=== PATIENT | male | born 1970 | race Caucasian/White ===

== ENCOUNTER 2024-04-15 00:37 | Inpatient (IN) | payer OTHER, SELFPAY ==
[2024-04-14] VITALS (8 sets, daily range): BP systolic 138–166; BP diastolic 110–133; BMI 27.8
[2024-04-14 19:25] LABS: % Basophils 0.6 % (0-2); % Eosinophils 0.1 % (0-6); % Immature Granulocytes 0.4 % (0-0.5); % Lymphocytes 25.8 % (20.5-51.1); % Monocytes 10.3 % (1.7-9.3); % Neutrophils 62.8 % (42.2-75.2); Absolute Basophils 0.1 10^3/uL (0-0.2); Absolute Immature Granulocytes 0.1 10^3/uL (0-0.05); Absolute Lymphocytes 4.3 10^3/uL (1.2-3.4); Absolute Monocytes 1.7 10^3/uL (0.1-0.6); Absolute Neutrophils 10.5 10^3/uL (1.4-6.5); Hematocrit 44.4 % (39.0-52.0); Hemoglobin 15.3 g/dL (13.0-18.0); Mean Corp Hgb Conc. 34.5 g/dL (33.0-37.0); Mean Corpuscular Hgb 27.6 pg (27.0-31.0); Mean Platelet Volume 9.6 fL (7.4-10.4); Nucleated Red Blood Cells % 0 % (-); Platelet Count 316 10^3/uL (130-400); Red Blood Cell Count 5.55 10^6/uL (4.70-6.10); Red Cell Dist. Width 14.2 % (11.5-14.5); White Blood Cell Count 16.7 10^3/uL (4.8-10.8)
--- NOTE | 2024-04-14 19:32 | ED.GENMED ---
History of Present Illness
<Yvonne Krishna DO, Resident - Last Filed: 04/14/24 23:32>
General
Chief Complaint: Anxiety
Source: patient and ambulance crew
Time Seen by Provider: 04/14/24 19:10
Nursing documentation reviewed up to this point in time: agreed with
History of Present Illness
History of Present Illness:
Mr. Nuno Vieyra is a 53 yo male w PMH HTN, HLD, multiple sclerosis, back pain, and neuropathy brought into the ED by EMS with SOB and anxiety. The SOB is associated with anxiety and he becomes diaphoretic. The SOB has occurred 1-2x/day,
usually at night before sleep, for the past two months. 2 months ago, Pt was started on lexapro 20mg/day and switched from gabapentin to lyrica. Has been switched back to gabapentin. The dyspnea improved after using his 's inhaler two nights
ago. He denies chest pain, palpitations, LANDA, cough, fever.
Hx asthma in brother, pt exposed to secondhand smoke from father and home health aid.
Pt was seen yesterday by EMS for the same sx. Pt has been bed-bound for 3-4 years. He endorses increased stressors with his ex and children
Past History
<Yvonne Krishna DO, Resident - Last Filed: 04/14/24 23:32>
Past History
ED Past Medical History: Other (ms, psoriasis) and Other (multiple sclerosis)
ED Past Surgical History: Cholecystectomy and Other (L3-L5 hemilaminectomy)
Patient has exhibited threatening behavior?: No
Social History
Tobacco: 2nd hand smoke exposure
Drug: Marijuana
Personal:
Living: with family
Employment: Employed
Family History
Family History: Asthma (brother)
Review of Systems
<Yvonne Krishna DO, Resident - Last Filed: 04/14/24 23:32>
Review of Systems
Allergies reviewed?: Yes
Other source history: ambulance crew
Constitutional: Denies fever or fatigue
EENT: Denies sore throat or runny nose
Respiratory: Reports trouble breathing; Denies cough
Cardiac: Reports no symptoms
ABD/GI: Reports constipated and other (incontinent); Denies abdominal pain, nausea or vomiting
: Reports no symptoms
Musculoskeletal: Reports back pain; Denies edema
Neurological: Denies dizzy or headache
Phy Exam
<Yvonne Krishna DO, Resident - Last Filed: 04/14/24 23:32>
General Physical Exam
General Presentation: mild distress
General age: appears stated age
General Skin: warm
General Mental: alert
General Hydration: appears well hydrated
General Chronic Disability: non ambulatory
Cardiovascular Exam
Cardiovascular Exam: no edema, no gallop, no murmur, tachycardia and other (sinus rhythm)
Heart Sounds: normal
Pulmonary Exam
Pulmonary Exam: lungs clear, no rales, chest non tender, no rhonchi, no wheezing, no cough and other (observed pulse ox dipping to the low 80s while in the room)
Respiratory Effort: tachypnea
Oxygen Status: oxygen 4 liters via NC
Cough: no cough
Respirations: moderate effort
Gastrointestinal Exam
Gastrointestinal Exam: normal bowel sounds, non tender, soft, no organomegaly, no pulsatile mass and non distended
Neurological Exam
Neurological Exam: alert and oriented x3
Scores
<Yvonne Krishna DO, Resident - Last Filed: 04/14/24 23:32>
QCSI Score
Respiratory Rate: 23-28
Pulse Oximetry: < or = to 88
Oxygen Requirement: 3-4 L
Score: 10
Result: High Risk
PE Wells Score
Symptoms of DVT: No
No alternative diagnosis better explains the illness: No
Tachycardia with pulse > 100: Yes
Immobilization (>=3 days) or surgery within previous 4 weeks: Yes
Prior history of DVT or pulmonary embolism: No
Presence of hemoptysis: No
Presence of malignancy: No
Pulmonary Embolism Risk Score: 3.0
Probability of PE: Pt is moderate risk
PERC Rule Criteria
Age <50 years: No
HR <100 bpm: No
Room air oxygen sat >94%: No
History of DVT or PE: No
Recent trauma or surgery: No
Hemoptysis: No
Exogenous estrogen: No
Clinical signs suggestive of DVT: No
: No
Considered low risk for PE: No
PERC Score: 4
PE can be excluded by PERC: No
<Sophia Saunders DO - Last Filed: 04/14/24 23:28>
QCSI Score
Score: 10
Result: High Risk
PE Wells Score
Pulmonary Embolism Risk Score: 3.0
Probability of PE: Pt is moderate risk
PERC Rule Criteria
PERC Score: 4
PE can be excluded by PERC: No
Course
<Yvonne Krishna DO, Resident - Last Filed: 04/14/24 23:32>
Orders/Labs/Results
Orders:
Orders
04/14/24 19:10
EKG [Electrocardiogram (*1)] Urgent
Reason for Study: Shortness of Breath
04/14/24 19:11
EKG- Treatment ONCE
04/14/24 19:15
CBC/With Diff [Complete Blood Count/With Diff] Urgent
CMP [Comprehensive Metabolic Panel] Urgent
04/14/24 20:06
COVID-19 Antigen Urgent
Source: Nasal Swab
D-Dimer Urgent
Troponin I Urgent
04/14/24 20:41
CT Chest Pe Study Urgent
Comment:
Reason For Exam: SOB, positive dimer, tachy
04/14/24 23:26
PTT Urgent
Comment: Obtain baseline before beginning heparin infusion if not already collected
Heparin 7,900 units IV NOW STA
Pharmacy Request to Place See Dose Instructions PO NOW STA
Discontinue all Active Warfarin orders?: Yes
Nursing to Place Non Medication Order As Directed
Physician Order: PTT 6 hours after initial start of Heparin infusion
04/14/24 23:30
Heparin 26229 Units/250 ml 25,000 units in 250 ml IV PER PROTOCOL
Weight to be used for heparin protocol in kilograms (kg):: 98.3
Protocol:: DVT/PE
PTT Goal Range to be used:: PTT 73 to 111 seconds
Order type:: Initial
INITIAL Infusion Dose (UNITS/KG/hr) & then follow protocol:: 18 units/kg/hr
Infusion Dose in UNITS/hr & then follow protocol (UNITS/hr):: 1,800
INFUSION RATE in mL/hr & then follow protocol (mL/hr):: 18
For DVT/PE algorithm, re-bolus for low PTT?: Yes
PTT less than or equal to 64 seconds:: Re-bolus 80 units/kg (max 10,000units). Increase by 400 units/hr
(+ 4mL/hr)
PTT 64.1 to 72.9 seconds:: Re-bolus 40 units/kg (max 5,000 units). Increase by 200 units/hr
(+ 2mL/hr)
PTT 73 to 111 seconds:: Target Range. No change in rate.
PTT 111.1 to 130.9 seconds:: Decrease rate by 200 units/hr (- 2 mL/hr)
PTT 131 to 199.9 seconds:: HOLD for 1 hr. Then decrease by 300 units/hr (- 3mL/hr)
PTT greater than or equal to 200 seconds:: HOLD for 2 hrs & Notify Provider. Then decrease by 400 units/hr
(- 4mL/hr)
Lab follow-up:: Each change, PTT q6h until 2 consecutive are therapeutic. Then
PTT daily.
04/14/24 23:[address] See Dose Instructions IV DIRECTED
Abnormal Lab Results
04/14/24 04/14/24
19:15 20:06
WBC 16.7 H 10^3/uL
(4.8-10.8)
Abs Immat Gran (auto) 0.1 H 10^3/uL
(0-0.05)
Absolute Neuts (auto) 10.5 H 10^3/uL
(1.4-6.5)
Absolute Lymphs (auto) 4.3 H 10^3/uL
(1.2-3.4)
Absolute Monos (auto) 1.7 H 10^3/uL
(0.1-0.6)
Monocytes % 10.3 H %
(1.7-9.3)
D-Dimer 2.43 H ug/mlFEU
(0.00-0.50)
Glucose 170 H mg/dl
(70-99)
Total Bilirubin 1.4 H mg/dl
(0.2-1.3)
AST 159 H U/L
(17-59)
ALT 186 H U/L
(0-50)
Alkaline Phosphatase 137 H U/L
(38-126)
04/14/24 19:15
04/14/24 19:15
Vital Signs
Initial and Last Documented VS:
Initial Vital Signs
Pulse Resp BP Pulse Ox
107 17 162/117 84
04/14/24 19:10 04/14/24 19:10 04/14/24 19:10 04/14/24 19:10
Last Documented Vital Signs
Temp Pulse Resp BP Pulse Ox
98.3 F 106 12 138/110 94
04/14/24 19:12 04/14/24 23:15 04/14/24 23:12 04/14/24 23:12 04/14/24 23:15
<Sophia Nicky, DO - Last Filed: 04/14/24 23:28>
Orders/Labs/Results
Orders:
Orders
04/14/24 19:10
EKG [Electrocardiogram (*1)] Urgent
Reason for Study: Shortness of Breath
04/14/24 19:11
EKG- Treatment ONCE
04/14/24 19:15
CBC/With Diff [Complete Blood Count/With Diff] Urgent
CMP [Comprehensive Metabolic Panel] Urgent
04/14/24 20:06
COVID-19 Antigen Urgent
Source: Nasal Swab
D-Dimer Urgent
Troponin I Urgent
04/14/24 20:41
CT Chest Pe Study Urgent
Comment:
Reason For Exam: SOB, positive dimer, tachy
04/14/24 23:26
PTT Urgent
Comment: Obtain baseline before beginning heparin infusion if not already collected
Heparin 7,900 units IV NOW STA
Pharmacy Request to Place See Dose Instructions PO NOW STA
Discontinue all Active Warfarin orders?: Yes
Nursing to Place Non Medication Order As Directed
Physician Order: PTT 6 hours after initial start of Heparin infusion
04/14/24 23:30
Heparin 15118 Units/250 ml 25,000 units in 250 ml IV PER PROTOCOL
Weight to be used for heparin protocol in kilograms (kg):: 98.3
Protocol:: DVT/PE
PTT Goal Range to be used:: PTT 73 to 111 seconds
Order type:: Initial
INITIAL Infusion Dose (UNITS/KG/hr) & then follow protocol:: 18 units/kg/hr
Infusion Dose in UNITS/hr & then follow protocol (UNITS/hr):: 1,800
INFUSION RATE in mL/hr & then follow protocol (mL/hr):: 18
For DVT/PE algorithm, re-bolus for low PTT?: Yes
PTT less than or equal to 64 seconds:: Re-bolus 80 units/kg (max 10,000units). Increase by 400 units/hr
(+ 4mL/hr)
PTT 64.1 to 72.9 seconds:: Re-bolus 40 units/kg (max 5,000 units). Increase by 200 units/hr
(+ 2mL/hr)
PTT 73 to 111 seconds:: Target Range. No change in rate.
PTT 111.1 to 130.9 seconds:: Decrease rate by 200 units/hr (- 2 mL/hr)
PTT 131 to 199.9 seconds:: HOLD for 1 hr. Then decrease by 300 units/hr (- 3mL/hr)
PTT greater than or equal to 200 seconds:: HOLD for 2 hrs & Notify Provider. Then decrease by 400 units/hr
(- 4mL/hr)
Lab follow-up:: Each change, PTT q6h until 2 consecutive are therapeutic. Then
PTT daily.
04/14/24 23:[address] See Dose Instructions IV DIRECTED
Abnormal Lab Results
04/14/24 04/14/24
19:15 20:06
WBC 16.7 H 10^3/uL
(4.8-10.8)
Abs Immat Gran (auto) 0.1 H 10^3/uL
(0-0.05)
Absolute Neuts (auto) 10.5 H 10^3/uL
(1.4-6.5)
Absolute Lymphs (auto) 4.3 H 10^3/uL
(1.2-3.4)
Absolute Monos (auto) 1.7 H 10^3/uL
(0.1-0.6)
Monocytes % 10.3 H %
(1.7-9.3)
D-Dimer 2.43 H ug/mlFEU
(0.00-0.50)
Glucose 170 H mg/dl
(70-99)
Total Bilirubin 1.4 H mg/dl
(0.2-1.3)
AST 159 H U/L
(17-59)
ALT 186 H U/L
(0-50)
Alkaline Phosphatase 137 H U/L
(38-126)
04/14/24 19:15
04/14/24 19:15
Vital Signs
Initial and Last Documented VS:
Initial Vital Signs
Pulse Resp BP Pulse Ox
107 17 162/117 84
04/14/24 19:10 04/14/24 19:10 04/14/24 19:10 04/14/24 19:10
Last Documented Vital Signs
Temp Pulse Resp BP Pulse Ox
98.3 F 106 12 138/110 94
04/14/24 19:12 04/14/24 23:15 04/14/24 23:12 04/14/24 23:12 04/14/24 23:15
<Yvonne Krishna DO, Resident - Last Filed: 04/14/24 23:32>
MDM/Problems Addressed
Differential Diagnosis Includes:
URI, pneumonia, PE, DVT, medication side effect, CAD
MDM/Problems Addressed:
Concern for infectious process low due to lack of fever and sx other than dyspnea. COVID negative.
No STEMI on ECG and troponin WNL, so less likely CAD.
Dyspnea, tachycardia, hypoxemia, and bedbound state raises concern for DVT and PE. D-dimer of 2.43ug/mL. CTA chest showed Likely small, subsegmental pulmonary embolus within the posterior right lower lobe. Will admit for PE treatment and hypoxia
Chronic conditions affecting care: DM, HTN and Neurological disorder
Acute Exacerbation and/or Progression of Chronic Illness: HTN
<Yvonne Krishna DO, Resident - Last Filed: 04/14/24 23:32>
*Pulse Oximetry
Patient hypoxic: yes
*Critical Care Note
Total Time (30-74mins, 75-104mins- exclusive of procedures): Not Applicable
Data Reviewed
Review of Other/Old Records Reveals: Labs, Records and Radiology Studies
Source: patient, records and ambulance crew
<Sophia Saunders DO - Last Filed: 04/14/24 23:28>
*Critical Care Note
Total Time (30-74mins, 75-104mins- exclusive of procedures): 40
comment:
The high probability of a clinically significant, sudden or life threatening deterioration of the cardiovascular and pulmonary system(s) required my full and direct attention, intervention and personal management. The aggregate critical care time
was 40 minutes. This time is in addition to time spent performing reported procedures but includes the following:
[x] Data Review and interpretation
[x] Patient assessment and monitoring of vital signs
[x] Documentation
[x] Medication orders and management
ED Attending Note
<Yvonne Krishna DO, Resident - Last Filed: 04/14/24 23:32>
-
Portions of this chart may have been created with voice recognition software.� Occasional wrong word or��sound alike� substitutions may have occurred due to the inherent limitations of voice recognition software.
<Sophia Saunders DO - Last Filed: 04/14/24 23:28>
ED Attending Note
Patient seen and examined by attending physician: Yes
I performed the substantive portion of visit, reviewed & personally made and approve the management plan that is documented in note by myself or SRAVAN.: Yes
I performed a history and physical exam of patient and discussed management with resident, I reviewed resident's note and agree with documented findings and plan of care.: Yes
ED Attending Note:
53-year-old male with history of MS (bedbound status), diabetes, hypertension, hyperlipidemia, new diagnosis of anxiety presenting to the emergency department for shortness of breath and feelings of anxiety. Patient reports symptoms have been
ongoing for the past 2 months, at which time he was started on Lexapro. He reports his symptoms are worse at nighttime, where he gets short of breath and feels anxious. Symptoms occur about 1-2 times per day. He feels that the symptoms have been
worsening. He tried using his 's inhaler for the shortness of breath, with mild relief. Denies any underlying history of asthma or COPD. Denies fever or known sick contacts. Reports mild cough. Denies any known history of blood clots, is
not on any anticoagulation. Denies associated chest pain. Vital signs on arrival significant for tachycardia and hypertension
On exam, patient in no acute respiratory distress, mild tachypnea. Benign cardiac and pulmonary exam without focal abnormal lung sounds. No motor function to lower extremities, reportedly chronic from MS. Patient gets infusions every 6 months.
EKG obtained, sinus tachycardia without significant acute ischemic abnormality or change from prior. Anxiety is certainly consideration, however given duration of symptoms, additional pathologies are also considered. Patient notes mild cough,
possible infectious pathology. Patient is bedbound, not on anticoagulation, high risk for PE. For this reason we will obtain chest x-ray imaging, COVID swab, D-dimer.
21:00 - Patient's dimer is elevated. Plan for CT chest imaging.
23:20 -CT chest does show concern for subsegmental PE. Patient's oxygen has been intermittently dipping to the 80s, now on supplemental O2. Heart rate remains elevated. For this reason. Will heparin drip.
Discharge Plan
Departure
Patient Disposition: Admit
Date of Disposition: 04/14/24
Time of Disposition: 23:28
Presentation/result/management discussed w/ accepting MD/DO: Hospitalist
Patient with high blood pressure during this ER visit?: Yes
Condition: Fair
Covid-19: Negative COVID-19
Discharge Problem:
Pulmonary embolism, Hypoxia
Prescriptions:
No Action
Lexapro
20 mg 2XD
Nyamyc
clonazepam
1 mg 2XD
gabapentin
800 mg 4XD
glipizide
10 mg 2XD
metoprolol succinate
50 mg 1XD
rosuvastatin
10 mg 1XD
Referrals:
UNKNOWN - PT DOES,NOT KNOW [Family Provider] -
Interventions
Interventions:
*Risk Screen - Suicide Last Done: 04/14/24 19:12
*General Assessment Last Done: 04/14/24 19:12
*Neglect/Abuse Screening Last Done: 04/14/24 19:12
ED- Fall Risk Assessment Last Done: 04/14/24 19:12
*ED COVID-19 Vaccine History Last Done: 04/14/24 23:13
ED-Psychological Assessment Last Done: 04/14/24 19:12
Discharge Date and Time
Print Language: CYPRIOT
[2024-04-14 19:39] LABS: ALT (SGPT) 186 U/L (0-50); AST (SGOT) 159 U/L (17-59); Albumin 4.2 g/dl (3.5-5.0); Alkaline Phosphatase 137 U/L (38-126); Blood Urea Nitrogen 18 mg/dl (9-20); Calcium 9.3 mg/dl (8.4-10.2); Carbon Dioxide 24 mmol/L (22-30); Chloride 104 mmol/L (98-107); Estimated Creatinine Clearance 112 ml/min; Glucose 170 mg/dl (70-99); Potassium 4.4 mmol/L (3.5-5.1); Sodium 140 mmol/L (135-145); Total Bilirubin 1.4 mg/dl (0.2-1.3); Total Protein 7.4 g/dl (6.3-8.2); eGFR > 60.00
[2024-04-14 20:35] LABS: D-Dimer 2.43 ug/mlFEU (0.00-0.50)
[2024-04-14 20:42] LABS: COVID-19 Antigen Negative (Negative)
[2024-04-14 20:48] LABS: Troponin I 0.034 ng/ml
[2024-04-15] VITALS (16 sets, daily range): BP systolic 135–165; BP diastolic 92–123; PULSE 98–99; O2SAT 98
[2024-04-15 00:11] LABS: APTT 31.1 Sec (23.4-35.0)
[2024-04-15] MEDS: HEPARIN 25000 UNITS/250 ML IV ×2 (00:11→15:40)
[2024-04-15] MEDS: HEPARIN 7900 UNITS IV ×2 (00:11→16:25)
--- NOTE | 2024-04-15 00:19 | HPS.HSE ---
Family Physician
-
Family Physician: NOT KNOW UNKNOWN - PT DOES
Chief Complaint
-
SOB
History of Present Illness
Patient is a 53y M with PMH significant for chronic paraplegia who presents to ED complaining of SOB. Patient states that he began to develop SOB about 2 months ago. At that time, his gabapentin was changed to Lyrica and he was started on
Cymbalta. He thought that the med changes might be responsible and so he switched back to gabapentin (which he finds very helpful) and Cymbalta was stopped. He was changed to Lexapro, but he admits that he has not taken that.
His symptoms of dyspnea have worsened despite any med adjustments. Patient has been SOB for most of the day and has difficulty sleeping at night due to dyspnea.
Two days ago, he took his girlfriend's albuterol and noted significant improvement in his symptoms.
he has taken this daily for the past few days and notes that it seems quite helpful each time.
In addition, he has chronic constipation and notes that he typically moves his bowels once a week or less.
He recently was administered an enema and had significant passage of stool. He noted that his breathing seemed much improved following this evacuation of his bowels as well.
Patient again became SOB this evening while trying to sleep and presented to the ED for further evaluation.
He denies any fever, chills. chest pain, etc.
He has noted cough productive of yellow mucus - which seemed to start after he started using albuterol.
He has a brother who is currently ill with COVID.
Medical History
Past Medical History
Past Medical History: Reports Other
Additional Past Medical History:
Paraplegia
Upper Extremity Weakness
Multiple Sclerosis
Cervical Cord Compression
DM-II
Obesity
Hypertension
Past Surgical History: Reports Other
Additional Past Surgical History:
Cholecystectomy
Cervical Decompression / Fusion
Lumbar Laminectomy
Social History
Tobacco: Non-smoker
Alcohol: None
Drug: Marijuana (Smokes marijuana / medical marijuana daily.)
Personal: Partner
Family History
Family History: Not pertinent
Allergies / Home Medications
Allergies reflects when Allergies were last updated in [facility].
Home Medications with original date entered in [facility]
Allergy/Medication List:
Allergies
Allergy/AdvReac Type Severity Reaction Status Date / Time
No Known Allergies Allergy Verified 02/13/19 17:33
Home Medications
aspirin 81 mg tablet,delayed release 81 mg PO DAILY 04/14/24
clobetasol 0.05 % scalp solution 1 applic topical BIDPRN PRN psoriasis breakout 04/14/24
clonazepam 1 mg tablet 1 mg PO BID 04/14/24
ergocalciferol (vitamin D2) 1,250 mcg (50,000 unit) capsule 1,250 mcg PO WE 04/14/24
escitalopram oxalate 20 mg tablet 20 mg PO ONCE 04/14/24
gabapentin 800 mg tablet 800 mg PO QID 04/14/24
glipizide 10 mg tablet, extended release 24 hr 10 mg PO BID 04/14/24
metoprolol succinate 50 mg tablet,extended release 24 hr 50 mg PO DAILY 04/14/24
nystatin 100,000 unit/gram topical powder (Nyamyc) 1 applic topical QID 04/14/24
rosuvastatin 10 mg tablet 10 mg PO DAILY 04/14/24
Review of Systems
-
History Source: Patient
A 12 point ROS was completed and negative except as noted: Yes
Constitutional: Reports Fatigue; Denies Fever or Chills
Respiratory: Reports Cough and Trouble Breathing
Cardiac: Denies Chest Pain or Palpitations
Abdomen/GI: Reports Constipated; Denies Abdominal Pain, Nausea, Vomiting or Diarrhea
: Denies Dysuria, Frequency or Flank Pain
Musculoskeletal: Denies Joint Pain or Edema
Neurological: Reports Weakness and Numbness; Denies Dizzy or Headache
Psych: Reports Anxiety; Denies Depression
Physical Exam
Vital Signs
Vital Signs
Temp Pulse Resp BP Pulse Ox
98.3 F 110 21 138/110 97
04/14/24 19:12 04/15/24 00:00 04/15/24 00:00 04/14/24 23:12 04/15/24 00:00
Physical Exam
General: Other (53y M in no acute distress.)
HEENT: Moist mucous membranes, PERRLA and Other (Thick neck.)
Respiratory: Clear; No Wheezes, Rales or Rhonchi
Cardiac: S1/S2 and Regular Rhythm; No Murmur
GI: Soft, Non Tender, Non Distended, Normal Bowel Sounds and Other (Obese)
Musculoskeletal: No Clubbing, No Cyanosis and No Edema
Neuro: AO x 3 and Other (Marked LE weakness <1 /5 strength. Upper extremity weakness (R > L). Diminished sensation in the LEs.)
Psych: Anxious; No Depressed
Laboratory Results
-
04/14/24 19:15
04/14/24 19:15
Laboratory Results
Total Bilirubin 1.4 mg/dl (0.2-1.3) H 04/14/24 19:15
AST 159 U/L (17-59) H 04/14/24 19:15
ALT 186 U/L (0-50) H 04/14/24 19:15
Alkaline Phosphatase 137 U/L (38-126) H 04/14/24 19:15
Troponin I 0.034 ng/ml 04/14/24 20:06
Impression/Plan
-
A/P: Patient is a 53y M with PMH significant for paraplegia / weakness of uncertain etiology who presents to ED complaining of worsening SOB over the past 2 months.
Subjective Dyspnea
- Admit for further evaluation and treatment.
- Suspect that this is multifactorial and related to lung disease / COPD, constipation / abdominal distention, etc.
- Treat individual issues as noted below.
- Follow for clinical improvement.
RLL Pulmonary Embolism
- Seen on CT done in the ED today.
- Seems unlikely that this small subsegmental lesion is responsible for his symptoms.
- Certainly at risk for VTE given his bed-bound state.
- IV Heparin infusion x 24 hours then transition to OAC if clinically stable.
- Check Echo for completeness.
Asthma / COPD
- Suspect obstructive lung disease due to smoking / regular THC use.
- Begin inhaler regimen, PRN albuterol / nebs, etc.
- Follow for continued clinical response.
- Would recommend decrease / cessation of THC use.
- Recommend formal outpatient Pulm evaluation, PFTs, etc.
Chronic Constipation
- Patient has BM on average once per week.
- Appreciated improvement in dyspnea after moving his bowels.
- Recommend standing bowel regimen to avoid constipation in the future.
- Follow for effectiveness.
Multiple Sclerosis
Cervical Cord Compression
Paraplegia / Upper Extremity Weakness
- Patient with symptoms for > 20 years.
- Originally diagnosed with MS; however, later evaluation as symptoms progressed seemed to indicate more cervical cord compression.
- Had decompression, but unfortunately not much clinical improvement given duration of symptoms prior to this.
- Patient notes that he was off-and-on MS meds over the past 20 years.
- Has never had any new lesions appreciated since his initial diagnosis (despite progressive symptoms).
- No MS meds in the past 2+ years.
- Clinical picture seems to fit mostly with cord compression and now irreversible deficits.
- Follow NIF / FVC, but doubt neurologic etiology of his dyspnea.
- Continue gabapentin for chronic neuropathic pain.
DM-II
- Stable. Continue glipizide at decreased dose.
- Follow glucose and cover with SSI.
- Update A1C.
Benign Hypertension
- Stable. Continue metoprolol.
Anxiety / Depression
- Some component of anxiety as patient also reports panic attacks, etc over the past 2 months (though all triggered by SOB).
- Would begin / continue Lexapro.
- Continue clonazepam as PRN.
- Adjust regimen as needed.
DVT Prophylaxis: On IV Heparin.
Code Status: Full
[2024-04-15 06:58] LABS: APTT 127.5 Sec (23.4-35.0)
--- NOTE | 2024-04-15 07:32 | W.PN.HOSP.TC ---
Today's Communication/Plan
-
hep gtt
cardio eval
Low dose lasix
daily weights I/O
glycemic control
blood pressure control
Assessment / Plan
Assessment / Plan
Physical Exam
General: no acute distress appears comfortable at this time
HEENT: Moist mucous membranes, PERRLA Thick neck
Respiratory: Clear; No Wheezes, Rales or Rhonchi on nasal cannula oxygen supplementation
Cardiac: S1/S2 and Regular Rhythm; No Murmur
GI: Soft, Non Tender, Non Distended, Normal Bowel Sounds and Other (Obese)
Musculoskeletal: No Clubbing, No Cyanosis and No Edema
Neuro: AO x 3 Marked LE weakness <1 /5 strength. Upper extremity weakness (R > L) able to lift both ext's in air. Loss of hand dexterity b/l noted. Diminished sensation in the LEs
Psych: Anxious; No Depressed
A/P: Patient is a 53y M with PMH significant for paraplegia / weakness of uncertain etiology who presents to ED complaining of worsening SOB over the past 2 months.
Subjective Dyspnea likely multifactorial (PE and heart failure)
RLL Pulmonary Embolism
- CT appreciated.
-IV Heparin infusion x 24 hours then transition to OAC if clinically stable.
Severe Heart Failure reduced EF 20-25%
-ECHO appreciated
-exam however appears euvolemic, lungs clear to auscultation, no pitting lower ext's edema
-cardio eval requested
-low dose Lasix started IV
-daily weights I/O
-cont home metoprolol
Asthma / COPD
- Suspect obstructive lung disease due to smoking / regular THC use.
- Begin inhaler regimen, PRN albuterol / nebs
- Follow for continued clinical response.
- Would recommend decrease / cessation of THC use.
- Recommend formal outpatient Pulm evaluation, PFTs
Chronic Constipation
- Patient has BM on average once per week.
- Appreciated improvement in dyspnea after moving his bowels.
- Recommend standing bowel regimen to avoid constipation in the future.
Multiple Sclerosis
Cervical Cord Compression
Paraplegia / Upper Extremity Weakness
- Patient with symptoms for > 20 years.
- Originally diagnosed with MS; however, later evaluation as symptoms progressed seemed to indicate more cervical cord compression.
- Had decompression, but unfortunately not much clinical improvement given duration of symptoms prior to this.
- Patient notes that he was off-and-on MS meds over the past 20 years.
- Has never had any new lesions appreciated since his initial diagnosis (despite progressive symptoms).
- No MS meds in the past 2+ years.
- Clinical picture seems to fit mostly with cord compression and now irreversible deficits.
- Follow NIF / FVC, but doubt neurologic etiology of his dyspnea.
- Continue gabapentin for chronic neuropathic pain.
DM-II
- Stable. Continue glipizide at decreased dose.
- Follow glucose and cover with SSI.
- Update A1C.
Benign Hypertension
- Stable. Continue metoprolol.
Anxiety / Depression
- Some component of anxiety as patient also reports panic attacks, etc over the past 2 months (though all triggered by SOB).
- Would begin / continue Lexapro.
- Continue clonazepam as PRN.
- Adjust regimen as needed.
DVT Prophylaxis: On IV Heparin.
Code Status: Full
Discussed with patient and patient's family at bedside.
I spent a total of 50 minutes with the patient or on the floor. More than 50% of this time involved counseling and coordination of care.
Anticipated Discharge: > 48 hours
Subjective/Interval History
-
Date of Service: April 15, 2024
Seen and examined at bedside no acute distress resting comfortably in bed. Family at bedside during evaluation. Patient able to lift upper ext's, right weaker than left. on nasal cannula
Objective Data
-
Labs:
Laboratory Results
04/14/24 04/14/24 04/15/24
19:15 23:44 05:58
APTT 31.1 127.5 H
Sodium 140 Pending
Potassium 4.4 Pending
Chloride 104 Pending
Carbon Dioxide 24 Pending
BUN 18 Pending
Creatinine 0.9 Pending
Glucose 170 H Pending
Calcium 9.3 Pending
Total Bilirubin 1.4 H
AST 159 H
ALT 186 H
Alkaline Phosphatase 137 H
04/15/24
13:00
APTT Pending
Sodium
Potassium
Chloride
Carbon Dioxide
BUN
Creatinine
Glucose
Calcium
Total Bilirubin
AST
ALT
Alkaline Phosphatase
Vital Signs:
Vital Signs
Temp Pulse Resp BP Pulse Ox
98.3 F 109 14 165/116 97
04/14/24 19:12 04/15/24 05:00 04/15/24 04:30 04/15/24 04:00 04/15/24 04:15
[2024-04-15 07:34] LABS: TSH Reflex To Free T4 1.01 uIU/ml (0.47-4.68)
[2024-04-15 07:35] LABS: Blood Urea Nitrogen 16 mg/dl (9-20); Calcium 9.3 mg/dl (8.4-10.2); Carbon Dioxide 20 mmol/L (22-30); Chloride 103 mmol/L (98-107); Estimated Creatinine Clearance 112 ml/min; Glucose 153 mg/dl (70-99); Potassium 4.3 mmol/L (3.5-5.1); Sodium 138 mmol/L (135-145); eGFR > 60.00
[2024-04-15 08:21] LABS: Glycohemoglobin (HgbA1c) 6.5 % (4.0-5.6)
[2024-04-15] MEDS: DUONEB 3 ML INH ×4 (08:22→20:17)
[2024-04-15] MEDS: ADVAIR HFA 115/21 MCG INHALER 2 PUFF INH ×2 (08:22→20:17)
[2024-04-15] MEDS: CRESTOR 10 MG PO (08:42)
[2024-04-15] MEDS: LEXAPRO 20 MG PO (08:42)
[2024-04-15] MEDS: TOPROL XL 50 MG PO (08:42)
[2024-04-15] MEDS: NEURONTIN 800 MG PO ×4 (08:42→21:31)
[2024-04-15] MEDS: MIRALAX 17 GRAMS PO (08:44)
[2024-04-15] MEDS: GLUCOTROL XL (EXTENDED RELEASE) 5 MG PO ×2 (09:33→21:38)
[2024-04-15] MEDS: COLACE 100 MG PO ×2 (09:33→21:30)
[2024-04-15 09:40] LABS: Glucose - Point of Care 211 mg/dl (70-99)
[2024-04-15] MEDS: NOVOLOG FLEXPEN-LOW RESISTANCE 2 UNITS SC (10:10)
--- NOTE | 2024-04-15 11:44 | RESPNOTE ---
Vital capacity and NIF testing completed at bedside. NIF>50 with reproducible results. Vital capacity testing limited due to patient inability to sit upright. VC was 1.8L.
[2024-04-15 13:36] LABS: Glucose - Point of Care 267 mg/dl (70-99)
[2024-04-15] MEDS: NOVOLOG FLEXPEN-LOW RESISTANCE 3 UNITS SC (13:38)
[2024-04-15] MEDS: KLONOPIN 0.5 MG PO (17:27)
[2024-04-15 18:27] LABS: NT-proBNP 13100 pg/ml
[2024-04-15 18:34] LABS: Glucose - Point of Care 100 mg/dl (70-99)
[2024-04-15] MEDS: NOVOLOG FLEXPEN-LOW RESISTANCE SC (18:39)
[2024-04-15 21:19] LABS: Glucose - Point of Care 112 mg/dl (70-99)
[2024-04-15] MEDS: SENOKOT 17.2 MG PO (21:31)
[2024-04-15] MEDS: DESENEX/MITRAZOL/ZEASORB 1 APPLIC TOPICAL (21:31)
[2024-04-15 23:59] LABS: APTT 132.5 Sec (23.4-35.0)
[2024-04-16] MEDS: LASIX 20 MG IV ×3 (00:29→16:49)
[2024-04-16 03:53] VITALS: BP 130/85
[2024-04-16] MEDS: DUONEB 3 ML INH ×4 (05:54→19:16)
[2024-04-16] MEDS: ADVAIR HFA 115/21 MCG INHALER 2 PUFF INH ×2 (05:54→19:16)
[2024-04-16 06:00] VITALS: BMI 27.1
--- NOTE | 2024-04-16 06:15 | PTCARENOTE ---
Pt frequently requesting to sleep on stomach overnight. While pt asleep on stomach condom cath came off, saturating bed. Pads applied under pt. pt states he can use urinal when needing to void. Urinal at bedside. Weight done on bed scale and
documented.
[2024-04-16] MEDS: HEPARIN 25000 UNITS/250 ML IV ×2 (06:33→22:39)
[2024-04-16 07:00] VITALS: BP 134/97
[2024-04-16 08:17] LABS: Hematocrit 48.4 % (39.0-52.0); Hemoglobin 16.1 g/dL (13.0-18.0); Mean Corp Hgb Conc. 33.3 g/dL (33.0-37.0); Mean Corpuscular Hgb 27.7 pg (27.0-31.0); Mean Corpuscular Volume 83.3 fL (80.0-94.0); Red Blood Cell Count 5.81 10^6/uL (4.70-6.10); Red Cell Dist. Width 14.1 % (11.5-14.5); White Blood Cell Count 15.1 10^3/uL (4.8-10.8)
[2024-04-16 09:04] LABS: Glucose - Point of Care 118 mg/dl (70-99)
[2024-04-16 09:04] LABS: Mean Platelet Volume 11.1 fL (7.4-10.4); Platelet Count 184 10^3/uL (130-400)
[2024-04-16] MEDS: LEXAPRO 20 MG PO (09:10)
[2024-04-16] MEDS: NEURONTIN 800 MG PO ×4 (09:10→21:17)
[2024-04-16] MEDS: NOVOLOG FLEXPEN-LOW RESISTANCE SC ×3 (09:10→16:49)
[2024-04-16] MEDS: CRESTOR 10 MG PO (09:11)
[2024-04-16] MEDS: TOPROL XL 50 MG PO (09:11)
[2024-04-16] MEDS: COLACE 100 MG PO (09:15)
[2024-04-16] MEDS: MIRALAX 17 GRAMS PO (09:24)
[2024-04-16] MEDS: DESENEX/MITRAZOL/ZEASORB 1 APPLIC TOPICAL ×2 (09:32→20:22)
--- NOTE | 2024-04-16 09:39 | CON.CAR ---
Consultation
Consultation Request
Date/Time Consultation Requested: 04/16/24
Date/Time Consultation Performed: 04/16/24
Requesting Provider: Dr Almanza
Performing Provider: Dr Bañuelos
Reason for Consultation: New CMY
Medical History
-
Chief Complaint: sob
History of Present Illness:
53-year-old gentleman with a past medical history of chronic paraplegia due to cervical cord compression, diabetes, hypertension, obesity and multiple sclerosis who presented complaining of shortness of breath. He had thought his shortness of
breath was due to medication changes but felt relief after using his girlfriends albuterol inhaler. He is being treated for a small PE. We are asked to consult given echocardiogram showing cardiomyopathy with an EF of 20 to 25%. He has no
orthopnea or PND. No lower extremity edema or increased abdominal distention. He is feeling better since arrival. He denies any recent viral illness had COVID 3 years ago. Father and uncle both had cardiomyopathy/heart failure but he does not
have any details for more than that.
Past Medical History
Past Medical History: HTN, NIDDM and Other (Chronic paraplegia in the setting of cervical cord compression and multiple sclerosis)
Past Surgical History: Cholecystectomy and Other (Cervical decompression/fusion, lumbar laminectomy)
Social History
Tobacco: Other (Marijuana daily)
Alcohol: None
Family History
Family History: Other (Heart failure uncle and father)
Allergies / Home Medications
Allergy/AdvReac Type Severity Reaction Status Date / Time
No Known Allergies Allergy Verified 02/13/19 17:33
�Medication �Instructions �Recorded �Confirmed �Type
aspirin 81 mg tablet,delayed 81 mg PO DAILY Blood Clot 04/14/24 04/14/24 History
release Prevention/Tx
clobetasol 0.05 % scalp solution 1 applic topical BIDPRN PRN 04/14/24 04/14/24 History
psoriasis breakout
clonazepam 1 mg tablet 1 mg PO BID Mental Health/Anxiety 04/14/24 04/14/24 History
ergocalciferol (vitamin D2) 1,250 1,250 mcg PO WE Supplement 04/14/24 04/14/24 History
mcg (50,000 unit) capsule
escitalopram oxalate 20 mg tablet 20 mg PO ONCE Depression 04/14/24 04/14/24 History
gabapentin 800 mg tablet 800 mg PO QID Neurological 04/14/24 04/14/24 History
Condition
glipizide 10 mg tablet, extended 10 mg PO BID Diabetes 04/14/24 04/14/24 History
release 24 hr
metoprolol succinate 50 mg 50 mg PO DAILY Heart Failure 04/14/24 04/14/24 History
tablet,extended release 24 hr
nystatin 100,000 unit/gram topical 1 applic topical QID Skin Issues 04/14/24 04/14/24 History
powder ([facility])
rosuvastatin 10 mg tablet 10 mg PO DAILY High Cholesterol 04/14/24 04/14/24 History
Review of Systems
-
All other systems: Negative unless noted
Abdomen/GI: Constipated
Physical Exam
Vital Signs
Temp Pulse Resp BP Pulse Ox
98.0 F 94 18 130/85 99
04/16/24 03:53 04/16/24 05:57 04/16/24 05:57 04/16/24 03:53 04/16/24 05:57
Lab Results
04/16/24 07:21
Troponin I 0.034 ng/ml 04/14/24 20:06
Bin-D-Wvuhcpoitpo Pept 32236 pg/ml 04/15/24 05:58
Physical Exam
General: No Apparent Distress and Comfortable
HEENT: Normocephalic and Anicteric
Cardiac: S1/S2, Regular Rhythm, Murmur (None), Rub (None) and Peripheral Edema (None)
Genito-urinary: No Costovertebral Tender
Musculoskeletal: No Clubbing, No Cyanosis and No Edema
Hematologic/Lymphatic: No Lymphadenopathy
Psych: Calm
Impression / Plan
-
53-year-old gentleman with paraplegia, MS, cervical cord compression, hypertension and hyperlipidemia presented for shortness of breath. He was diagnosed with a 6 subsegmental PE. Echo is showing new cardiomyopathy.
Shortness of breath:
Likely multifactorial but heart failure may be playing a role.
Continue with Lasix and treatment for PE
Heart failure with reduced EF: Acute
Continue metoprolol succinate at current doses, would like to start Entresto and SGLT2 inhibitor with possible MRA. Will ask case management to yanez out .
He is agreeable to left and right heart catheterization tomorrow, will review with interventional whether or not right heart catheterization can be done given PE.
N.p.o. after midnight
Agree with IV diuresis with intensive monitoring of his creatinine and labs.
Heart failure team education consult placed.
Cardiomyopathy: Unclear etiology, denies recent virus. No chest pain. Will get left heart catheterization to rule out ischemia given hyperlipidemia and diabetes.
If this was normal I would recommend a cardiac MRI as an outpatient.
Hypertension: Chronic
Hyperlipidemia: Chronic continue statin
PE: Continue heparin, would not transition to DOAC until after heart catheterization tomorrow.
Data:
TTE 04/15/24
Severely reduced left ventricular systolic function.
Left ventricular ejection fraction is 20-25%.
Moderate mitral regurgitation.
Mild tricuspid regurgitation.
No prior study available for comparison.
Data Reviewed
-
EKG: Tracing Personally Visualized and interpreted (Sinus tachycardia inferior infarct pattern with T wave inversions inferiorly)
CT Scan: Report Reviewed by me (CT scan with small segmental pulmonary embolism in the posterior right lower lobe, prior spinous process fractures T1-T2)
Medical Tests (Nuc Med, Echo etc): Image Personally Visualized and interpreted
Labs: Labs Reviewed by me (proBNP 13,100)
[2024-04-16] MEDS: GLUCOTROL XL (EXTENDED RELEASE) 5 MG PO ×2 (09:45→20:22)
[2024-04-16 09:57] LABS: APTT 75.2 Sec (23.4-35.0)
[2024-04-16 10:22] LABS: Blood Urea Nitrogen 18 mg/dl (9-20); Calcium 8.7 mg/dl (8.4-10.2); Carbon Dioxide 33 mmol/L (22-30); Chloride 98 mmol/L (98-107); Estimated Creatinine Clearance 91 ml/min; Glucose 122 mg/dl (70-99); Magnesium 2.1 mg/dl (1.6-2.3); Phosphorus 4.1 mg/dl (2.5-4.5); Sodium 141 mmol/L (135-145); eGFR > 60.00
[2024-04-16 11:00] VITALS: BP 137/97
[2024-04-16 12:40] LABS: Glucose - Point of Care 137 mg/dl (70-99)
--- NOTE | 2024-04-16 13:07 | W.PN.HOSP.TC ---
Today's Communication/Plan
-
Monitor vital signs see plan
Continue with IV Lasix, IV heparin
Plan for cardiac catheterization tomorrow
Assessment / Plan
Assessment / Plan
General: Other (53y M in no acute distress.)
HEENT: Moist mucous membranes, PERRLA and Other (Thick neck.)
Respiratory: Clear; No Wheezes, Rales or Rhonchi
Cardiac: S1/S2 and Regular Rhythm; No Murmur
GI: Soft, Non Tender, Non Distended, Normal Bowel Sounds and Other (Obese)
Musculoskeletal: No Clubbing, No Cyanosis and No Edema
Neuro: AO x 3 and Other (Marked LE weakness <1 /5 strength. Upper extremity weakness (R > L). Diminished sensation in the LEs.)
Psych: Anxious; No Depressed
Subjective Dyspnea
- Suspect that this is multifactorial secondary to CHF and pulmonary embolus
- Follow for clinical improvement.
RLL Pulmonary Embolism
- Seen on CT
- Seems unlikely that this small subsegmental lesion is responsible for his symptoms.
- Certainly at risk for VTE given his bed-bound state.
Continue with IV heparin for now, transition to p.o. when stable from cardiology standpoint
Echocardiogram with EF 20 to 25%
Has not had colonoscopy past, recommended patient to follow-up with PCP and GI outpatient
Cardiomyopathy, unclear etiology. Denies any chest pain
Cardiology following
EF 20 to 25%
Plan for cardiac catheterization 04/17
cw IV lasix
Asthma / COPD
- Suspect obstructive lung disease due to smoking / regular THC use.
- Begin inhaler regimen, PRN albuterol / nebs, etc.
- Follow for continued clinical response.
- Would recommend decrease / cessation of THC use.
- Recommend formal outpatient Pulm evaluation, PFTs, etc.Outpatient pulmonary evaluation
Chronic Constipation
- Patient has BM on average once per week.
- Appreciated improvement in dyspnea after moving his bowels.
- Recommend standing bowel regimen to avoid constipation in the future.
- Follow for effectiveness.
Multiple Sclerosis
Cervical Cord Compression
Paraplegia / Upper Extremity Weakness
- Patient with symptoms for > 20 years.
- Originally diagnosed with MS; however, later evaluation as symptoms progressed seemed to indicate more cervical cord compression.
- Had decompression, but unfortunately not much clinical improvement given duration of symptoms prior to this.
- Patient notes that he was off-and-on MS meds over the past 20 years.
- Has never had any new lesions appreciated since his initial diagnosis (despite progressive symptoms).
- No MS meds in the past 2+ years.
- Clinical picture seems to fit mostly with cord compression and now irreversible deficits.
- Follow NIF / FVC, but doubt neurologic etiology of his dyspnea.
- Continue gabapentin for chronic neuropathic pain.
DM-II
- Stable. Continue glipizide at decreased dose.
- Follow glucose and cover with SSI.
- Update A1C.
Benign Hypertension
- Stable. Continue metoprolol.
Anxiety / Depression
- Some component of anxiety as patient also reports panic attacks, etc over the past 2 months (though all triggered by SOB).
- Would begin / continue Lexapro.
- Continue clonazepam as PRN.
- Adjust regimen as needed.
DVT Prophylaxis: On IV Heparin.
Code Status: Full
I spent a total of 52 minutes with the patient or on the floor. More than 50% of this time involved counseling and coordination of care.
Anticipated Discharge: 24 - 48 hours
Subjective/Interval History
-
Date of Service: April 16, 2024
denies pain
Objective Data
-
Labs:
Laboratory Results
04/16/24 04/16/24 04/16/24
07:21 09:18 15:30
WBC 15.1 H
Hgb 16.1
Hct 48.4
Plt Count 184 D
APTT 75.2 H Pending
Sodium Cancelled 141
Potassium Cancelled 4.0
Chloride Cancelled 98
Carbon Dioxide Cancelled 33 H
BUN Cancelled 18
Creatinine Cancelled 1.1
Glucose Cancelled 122 H
Calcium Cancelled 8.7
Vital Signs:
Vital Signs
Temp Pulse Resp BP Pulse Ox
97.9 F 95 16 134/97 97
04/16/24 07:00 04/16/24 10:57 04/16/24 10:57 04/16/24 09:11 04/16/24 10:57
I&O
04/15/24 04/16/24 04/17/24
06:59 06:59 06:59
Intake Total 250 / 250
Output Total 1650 / 1650
Balance -1400 / -1400
--- NOTE | 2024-04-16 13:16 | CM ---
Addendum entered by Angie Robb 04/16/24 13:32:
Cost of Entresto 24/26 mg po twice daily is $47, Jardiance 10 mg QD, $47, and Farxiga 10mg $100. Cardiology is aware.
Original Note:
engineering manager electronics reviewed patient's chart and met with patient and patient lives with his friend in a modular home with ramp to enter, patient requires assist with adl's and is able to transfer himself to w/c, per patient his friend works for [employer] and provides services in home to patient, per patient he is waiting on surgery with Dr Mcdowell spine surgery, at [place], patient is for possible spine surgery. engineering manager electronics reviewed with patient PT/OT recommendations and patient states that he
does not want to go to acute rehab or skilled rehab as his spine surgeon that would on make things worse therefore patient has declined placement.
Pharmacy: [facility]
Plan; Home when stable, with private duty care through [employer].
[2024-04-16 15:54] VITALS: BP 147/99
[2024-04-16 16:32] LABS: Glucose - Point of Care 145 mg/dl (70-99)
[2024-04-16 18:19] LABS: APTT 66.6 Sec (23.4-35.0)
[2024-04-16] MEDS: HEPARIN 3900 UNITS IV (19:24)
[2024-04-16 19:52] VITALS: BP 127/88
[2024-04-16] MEDS: COLACE PO (20:13)
[2024-04-16] MEDS: SENOKOT PO (20:14)
[2024-04-16] MEDS: KLONOPIN 0.5 MG PO (21:18)
[2024-04-16 21:22] LABS: Glucose - Point of Care 118 mg/dl (70-99)
[2024-04-16 23:33] VITALS: BP 120/73
[2024-04-17] VITALS (9 sets, daily range): BP systolic 124–155; BP diastolic 69–110; PULSE 96–98; O2SAT 97; BMI 26.9
[2024-04-17 01:51] LABS: APTT 117.2 Sec (23.4-35.0)
[2024-04-17 05:35] LABS: Glucose - Point of Care 95 mg/dl (70-99)
[2024-04-17 05:59] LABS: Glucose - Point of Care 106 mg/dl (70-99)
[2024-04-17] MEDS: ANESTHETIC LOZENGE 1 LOZENGE PO ×2 (06:15→22:13)
[2024-04-17 06:59] LABS: Hematocrit 46.1 % (39.0-52.0); Hemoglobin 15.5 g/dL (13.0-18.0); Mean Corp Hgb Conc. 33.6 g/dL (33.0-37.0); Mean Corpuscular Hgb 27.5 pg (27.0-31.0); Mean Corpuscular Volume 81.9 fL (80.0-94.0); Mean Platelet Volume 10.1 fL (7.4-10.4); Platelet Count 317 10^3/uL (130-400); Red Blood Cell Count 5.63 10^6/uL (4.70-6.10); Red Cell Dist. Width 14.1 % (11.5-14.5); White Blood Cell Count 13.1 10^3/uL (4.8-10.8)
[2024-04-17 07:17] LABS: Blood Urea Nitrogen 19 mg/dl (9-20); Calcium 9.1 mg/dl (8.4-10.2); Carbon Dioxide 30 mmol/L (22-30); Chloride 101 mmol/L (98-107); Estimated Creatinine Clearance 100 ml/min; Glucose 91 mg/dl (70-99); Magnesium 2.2 mg/dl (1.6-2.3); Phosphorus 4.3 mg/dl (2.5-4.5); Potassium 3.6 mmol/L (3.5-5.1); Sodium 141 mmol/L (135-145); eGFR > 60.00
[2024-04-17] MEDS: ADVAIR HFA 115/21 MCG INHALER 2 PUFF INH ×2 (07:37→19:53)
[2024-04-17] MEDS: DUONEB 3 ML INH ×3 (07:37→19:53)
[2024-04-17 09:42] LABS: APTT 79.3 Sec (23.4-35.0)
[2024-04-17] MEDS: TOPROL XL 50 MG PO (10:05)
[2024-04-17] MEDS: DUONEB INH (11:33)
[2024-04-17 11:51] LABS: Glucose - Point of Care 133 mg/dl (70-99)
--- NOTE | 2024-04-17 12:22 | W.PN.HOSP.TC ---
Addendum entered and electronically signed by Colten Johnson MD 04/17/24 14:40:
Discussed with cardiology, will transition IV heparin to Eliquis. Discussed with RN that tonight after Eliquis started then heparin should be discontinued.
Original Note:
Today's Communication/Plan
-
Monitor vital signs see plan
Cardiac catheterization today
Check rapid strep
Continue with IV heparin, once okay to transition to p.o. from cardiology standpoint then will change to Eliquis
Assessment / Plan
Assessment / Plan
Physical Exam
General: no acute distress appears comfortable at this time
HEENT: Moist mucous membranes, PERRLA Thick neck
Respiratory: Clear; No Wheezes, Rales or Rhonchi on nasal cannula oxygen supplementation
Cardiac: S1/S2 and Regular Rhythm; No Murmur
GI: Soft, Non Tender, Non Distended, Normal Bowel Sounds and Other (Obese)
Musculoskeletal: No Clubbing, No Cyanosis and No Edema
Neuro: AO x 3 Marked LE weakness <1 /5 strength. Upper extremity weakness (R > L) able to lift both ext's in air. Loss of hand dexterity b/l noted. Diminished sensation in the LEs
Psych: Anxious; No Depressed
A/P: Patient is a 53y M with PMH significant for paraplegia / weakness of uncertain etiology who presents to ED complaining of worsening SOB over the past 2 months.
Subjective Dyspnea likely multifactorial (PE and heart failure)
RLL Pulmonary Embolism
- CT appreciated.
Continue with IV heparin for now, when okay with cardiology from heart standpoint then will transition to p.o. Eliquis
Should see hematology outpatient. Patient will also need colonoscopy outpatient as she has never gotten one
Severe new onset Heart Failure reduced EF 20-25%
-ECHO appreciated
-exam however appears euvolemic, lungs clear to auscultation, no pitting lower ext's edema
-cardio following, plan for cardiac catheterization 04/17
-low dose Lasix started IV
-daily weights I/O
-cont home metoprolol
sore throat
check rapid strep
Asthma / COPD
- Suspect obstructive lung disease due to smoking / regular THC use.
- Begin inhaler regimen, PRN albuterol / nebs
- Follow for continued clinical response.
- Would recommend decrease / cessation of THC use.
- Recommend formal outpatient Pulm evaluation, PFTs
Chronic Constipation
- Patient has BM on average once per week.
- Appreciated improvement in dyspnea after moving his bowels.
- Recommend standing bowel regimen to avoid constipation in the future.
Multiple Sclerosis
Cervical Cord Compression
Paraplegia / Upper Extremity Weakness
- Patient with symptoms for > 20 years.
- Originally diagnosed with MS; however, later evaluation as symptoms progressed seemed to indicate more cervical cord compression.
- Had decompression, but unfortunately not much clinical improvement given duration of symptoms prior to this.
- Patient notes that he was off-and-on MS meds over the past 20 years.
- Has never had any new lesions appreciated since his initial diagnosis (despite progressive symptoms).
- No MS meds in the past 2+ years.
- Clinical picture seems to fit mostly with cord compression and now irreversible deficits.
- Follow NIF / FVC, but doubt neurologic etiology of his dyspnea.
- Continue gabapentin for chronic neuropathic pain.
DM-II
- Stable. Continue glipizide at decreased dose.
- Follow glucose and cover with SSI.
- Update A1C.
Benign Hypertension
- Stable. Continue metoprolol.
Anxiety / Depression
- Some component of anxiety as patient also reports panic attacks, etc over the past 2 months (though all triggered by SOB).
- Would begin / continue Lexapro.
- Continue clonazepam as PRN.
- Adjust regimen as needed.
DVT Prophylaxis: On IV Heparin.
Code Status: Full
I spent a total of 52 minutes with the patient or on the floor. More than 50% of this time involved counseling and coordination of care.
Anticipated Discharge: 24 - 48 hours
Subjective/Interval History
-
Date of Service: April 17, 2024
Denies pain
Objective Data
-
Labs:
Laboratory Results
04/17/24 04/17/24 04/17/24
01:25 05:45 08:56
WBC 13.1 H
Hgb 15.5
Hct 46.1
Plt Count 317 D
APTT 117.2 H 79.3 H
Sodium 141
Potassium 3.6
Chloride 101
Carbon Dioxide 30
BUN 19
Creatinine 1.0
Glucose 91
Calcium 9.1
Vital Signs:
Vital Signs
Temp Pulse Resp BP Pulse Ox
97.4 F 103 16 146/110 97
04/17/24 07:45 04/17/24 10:05 04/17/24 07:46 04/17/24 10:05 04/17/24 07:46
I&O
04/16/24 04/17/24 04/18/24
06:59 06:59 06:59
Intake Total 250 / 250 1668 / 1668
Output Total 1650 / 1650 850 / 850
Balance -1400 / -1400 818 / 818
[2024-04-17] MEDS: CRESTOR 10 MG PO (12:40)
[2024-04-17] MEDS: NEURONTIN 800 MG PO ×3 (12:40→21:10)
[2024-04-17] MEDS: GLUCOTROL XL (EXTENDED RELEASE) 5 MG PO ×2 (12:41→21:10)
[2024-04-17] MEDS: LASIX 20 MG IV ×2 (12:41→17:10)
[2024-04-17] MEDS: LEXAPRO 20 MG PO (12:41)
[2024-04-17] MEDS: DESENEX/MITRAZOL/ZEASORB 1 APPLIC TOPICAL ×2 (12:44→21:10)
[2024-04-17] MEDS: COLACE PO (12:44)
[2024-04-17] MEDS: MIRALAX PO (12:47)
[2024-04-17] MEDS: NEURONTIN PO (12:58)
--- NOTE | 2024-04-17 13:12 | ITS.CL.CATH ---
[facility] - Catheterization
Cardiac Catheterization
Procedure Report:
CARDIAC CATHETERIZATION REPORT
Date of Procedure: 04/17/2024
Referring: Dr. Jordi Romano
Indication: newly reduced systolic heart failure
PROCEDURE:
1. Right heart catheterization
2. Left heart catheterization
3. Coronary angiography
ACCESS:
6 Kinyarwanda right radial artery
6 Kinyarwanda right antecubital vein
CATHETERS:
1. 6 Kinyarwanda [place]
2. 6 Kinyarwanda JL3.5
3. 6 Kinyarwanda JR4
HEMODYNAMIC DATA
LV 136/13 (EDP 32) mmHg
AO 139/100 (mean 113) mmHg
RA 11 mmHg
RV 54/8 (EDP 14) mmHg
PA 54/29 (mean 40) mmHg
PCWP 24 mmHg
CO/CI 5.7/2.6 L/min/M2
PVR 2.8 dsc*-5
SVR 1603 Wood Units
CORONARY ANGIOGRAPHY
Dominance: right
LM: normal
LAD: gives rise to three diagonal branches and multiple septal perforators before wrapping around the apex. There are mild luminal irregularities without obstructive CAD.
LCx: gives rise to a large OM1, small OM2, small OM3. There are mild luminal irregularities without obstructive CAD.
RCA: proximally occluded with bridging collaterals, R-R collaterals from an early marginal branch, and L-R collaterals.
Closure Device: TR band
Radiation dose (mGy): 374.74
DAP (cm2.Gy): 24.20
Fluoroscopy time (minutes): 3.1
CONCLUSIONS:
1. 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
2. Single vessel obstructive coronary artery disease in a right dominant system (RCA ANIMAL IMPERSONATOR with L-R collaterals). Cardiomyopathy is out of proportion to the degree of coronary artery disease.
RECOMMENDATIONS:
1. Expectant management after cardiac catheterization via right radial approach.
2. GDMT for systolic heart failure.
3. No indication for revascularization of RCA ANIMAL IMPERSONATOR currently.
3. High intensity statin
4. AC for PE. No ASA while on AC but should start asa 81 if AC discontinued.
Copy to: Neel Woodard MD, PhD
Signed: Neel Woodard MD, PhD
--- NOTE | 2024-04-17 13:28 | W.PN.CD ---
Today's Communication / Plan
-
cath with single vessel CAD and volume overload but preserved cardiac output; continue diuresis, titrate GDMT; ok to restart elidawit tonight
Impression / Plan
-
53-year-old gentleman with paraplegia, MS, cervical cord compression, hypertension and hyperlipidemia presented for shortness of breath. He was diagnosed with a 6 subsegmental PE. Echo is showing new cardiomyopathy with EF 25%. Found on left heart
catheterization to have single vessel CAD (RCA CALENDER OPERATOR HELPER) and elevated biventricular filling pressures.
#Heart failure with reduced EF: Acute
#Cardiomyopathy
- mixed ischemic and non-ischemic (EF out of proportion to degree of CAD), TSH normal
--> check iron studies, LFTs, lipid, A1c
--> trend LFTs for improvement (likely hepatic congestion)
--> consider cMRI as outpatient
--> continue IV lasix for now goal 1L negative
--> uptitrate metoprolol to 100 daily
--> start Entresto mid-dose, then dapa, then MRA. Will ask case management to yanez out (case management consult placed)
#CAD
#HLD
- no indication for revascularization of RCA CALENDER OPERATOR HELPER currently (no clear anginal symptoms, disease does not explain degree of CM)
--> increase to crestor 20
--> no ASA while on anticoagulation (this is likely chronic disease)
#PE:
- may need prison therapy/suppression if no clear inciting factor (or if felt due to immobility that is not reversible)
--> can transition to DOAC tonight
Data:
TTE 04/15/24
Severely reduced left ventricular systolic function.
Left ventricular ejection fraction is 20-25%.
Moderate mitral regurgitation.
Mild tricuspid regurgitation.
No prior study available for comparison.
Physical Exam
Vital Signs/Labs
Vital Signs
Temp Pulse Resp BP Pulse Ox
36.3 C 96 18 152/110 92
04/17/24 07:45 04/17/24 12:30 04/17/24 12:30 04/17/24 12:30 04/17/24 12:30
04/16/24 04/17/24 04/18/24
06:59 06:59 06:59
Actual Weight 95.527 kg 94.846 kg
04/17/24 05:45
04/17/24 05:45
APTT 79.3 Sec (23.4-35.0) H 04/17/24 08:56
Magnesium 2.2 mg/dl (1.6-2.3) 04/17/24 05:45
04/15/24
05:58
Vdj-S-Zqlshuwuhhq Pept [id number]
LAB Results
04/14/24
20:06
Troponin I 0.034
Physical Exam
Constitutional: No acute distress and Comfortable
Cardiovascular: Rhythm & rate is regular and Pedal edema is absent
Respiratory: Respiratory effort normal and Lungs clear to auscul.
Neuro/Psych: Alert and Oriented
Data Reviewed
-
Date of Service: April 17, 2024
Medical Decision Making: Reviewed Test Results, Tests Ordered and Review of Case with other Provider
EKG: Report Reviewed by me
Echo: Report Reviewed by me
X-Ray/CT/US/MRI/NUC/PET: Report Reviewed by me
Labs: Labs Reviewed by me and Labs Ordered by me
[2024-04-17 17:00] LABS: Glucose - Point of Care 149 mg/dl (70-99)
[2024-04-17] MEDS: ELIQUIS 10 MG PO (18:07)
[2024-04-17] MEDS: ENTRESTO 49 MG/51 MG 1 TAB PO (21:10)
[2024-04-17] MEDS: SENOKOT 17.2 MG PO (21:10)
[2024-04-17] MEDS: COLACE 100 MG PO (21:10)
[2024-04-17 21:25] LABS: Glucose - Point of Care 104 mg/dl (70-99)
[2024-04-18 03:35] VITALS: BP 144/99
[2024-04-18 06:00] VITALS: BMI 26.4
[2024-04-18] MEDS: DUONEB 3 ML INH ×3 (07:30→19:33)
[2024-04-18] MEDS: ADVAIR HFA 115/21 MCG INHALER 2 PUFF INH ×2 (07:30→19:33)
[2024-04-18 07:51] VITALS: BP 97/67
[2024-04-18 08:02] LABS: Hematocrit 50.1 % (39.0-52.0); Hemoglobin 16.9 g/dL (13.0-18.0); Mean Corp Hgb Conc. 33.7 g/dL (33.0-37.0); Mean Corpuscular Hgb 27.7 pg (27.0-31.0); Mean Corpuscular Volume 82.1 fL (80.0-94.0); Mean Platelet Volume 9.7 fL (7.4-10.4); Platelet Count 343 10^3/uL (130-400); Red Cell Dist. Width 14.6 % (11.5-14.5); White Blood Cell Count 13.6 10^3/uL (4.8-10.8)
[2024-04-18 08:08] LABS: Glucose - Point of Care 130 mg/dl (70-99)
[2024-04-18 08:43] LABS: ALT (SGPT) 128 U/L (0-50); AST (SGOT) 50 U/L (17-59); Albumin 4.3 g/dl (3.5-5.0); Alkaline Phosphatase 106 U/L (38-126); Blood Urea Nitrogen 16 mg/dl (9-20); Calcium 9.4 mg/dl (8.4-10.2); Carbon Dioxide 31 mmol/L (22-30); Chloride 97 mmol/L (98-107); Direct Bilirubin 0.4 mg/dl (0.0-0.4); Estimated Creatinine Clearance 100 ml/min; Glucose 117 mg/dl (70-99); HDL Cholesterol 47 mg/dl; LDL Cholesterol, Calculated 67 mg/dl; Magnesium 2.3 mg/dl (1.6-2.3); Phosphorus 4.7 mg/dl (2.5-4.5); Potassium 4.7 mmol/L (3.5-5.1); Sodium 140 mmol/L (135-145); Total Cholesterol 133 mg/dl (50-199); Total Protein 7.5 g/dl (6.3-8.2); Triglyceride 97 mg/dl (10-149); Very Low Density Lipoprotein 19 mg/dl (0-30); eGFR > 60.00
[2024-04-18] MEDS: NOVOLOG FLEXPEN-LOW RESISTANCE SC (08:55)
[2024-04-18] MEDS: DESENEX/MITRAZOL/ZEASORB 1 APPLIC TOPICAL ×2 (08:56→21:34)
[2024-04-18] MEDS: COLACE PO (08:57)
[2024-04-18] MEDS: ELIQUIS 10 MG PO ×2 (08:57→21:34)
[2024-04-18] MEDS: CRESTOR 20 MG PO (08:57)
[2024-04-18] MEDS: LASIX 20 MG IV ×2 (08:58→15:37)
[2024-04-18] MEDS: ENTRESTO 49 MG/51 MG 1 TAB PO ×2 (08:58→21:33)
[2024-04-18] MEDS: GLUCOTROL XL (EXTENDED RELEASE) 5 MG PO ×2 (08:58→21:34)
[2024-04-18] MEDS: TOPROL XL PO (08:59)
[2024-04-18] MEDS: NEURONTIN 800 MG PO ×4 (08:59→21:33)
[2024-04-18] MEDS: MIRALAX PO (08:59)
[2024-04-18] MEDS: LEXAPRO 20 MG PO (09:01)
--- NOTE | 2024-04-18 10:13 | W.PN.CD ---
Addendum entered and electronically signed by Rahul Frye MD 04/18/24 14:07:
I saw and examined the patient.
The DINING CAR WAITER/WAITRESS's note was reviewed and I agree with the note.
Respiratory status stable. Lungs clear. No edema. Cardiac catheterization site, right radial artery, stable. Patient appears to be tolerating medical therapy.
Will continue to optimize medical therapy for cardiomyopathy.
Right heart catheterization yesterday with PCW 24. Continue with diuretic. May consider transition to oral diuretic tomorrow.
Original Note:
Today's Communication / Plan
-
continue current medical therapy.
case management consult for pricing of Farxiga.
Impression / Plan
-
53-year-old male with paraplegia, MS, cervical cord compression, hypertension and hyperlipidemia presented for shortness of breath. He was diagnosed with a 6 subsegmental PE. Echo showed new cardiomyopathy with EF 25%. Found on left heart
catheterization to have single vessel CAD (RCA FINISH SAW OPERATOR) and elevated biventricular filling pressures.
Heart failure with reduced EF - Acute
Cardiomyopathy - new.
- mixed ischemic and non-ischemic (EF out of proportion to degree of CAD), TSH normal.
- trend LFTs for improvement (likely hepatic congestion), improving.
- consider cMRI as outpatient.
- continue IV Lasix, monitor daily weights.
- continue metoprolol 100 daily and Entresto 49/51mg BID.
- case management consulted for pricing of SGLT2i Farxiga, pending.
- plan to add Farxiga (when yanez known), then MRA.
CAD - stable w/o angina.
- cath yesterday with RCA FINISH SAW OPERATOR, no indication for revascularization of RCA FINISH SAW OPERATOR currently (no clear anginal symptoms, disease does not explain degree of CM).
- continue medical therapy.
HLD - LDL 67, goal LDL < 55.
- increased Crestor to 20mg, repeat lipid profile as outpatient.
- monitor LFTs.
- no ASA while on anticoagulation for PE (this is likely chronic disease).
PE - acute.
- may need longwall shearer operator therapy/suppression if no clear inciting factor (or if felt due to immobility that is not reversible).
- continue Eliquis.
Data:
TTE 04/15/24
Severely reduced left ventricular systolic function.
Left ventricular ejection fraction is 20-25%.
Moderate mitral regurgitation.
Mild tricuspid regurgitation.
No prior study available for comparison.
Physical Exam
Vital Signs/Labs
Vital Signs
Temp Pulse Resp BP Pulse Ox
97.9 F 96 18 97/67 93
04/18/24 07:51 04/18/24 07:51 04/18/24 07:51 04/18/24 08:59 04/18/24 07:51
04/17/24 04/18/24 04/19/24
06:59 06:59 06:59
Actual Weight 94.846 kg 93.157 kg
04/18/24 07:11
04/18/24 07:11
APTT 79.3 Sec (23.4-35.0) H 04/17/24 08:56
Magnesium 2.3 mg/dl (1.6-2.3) 04/18/24 07:11
Triglycerides 97 mg/dl (10-149) 04/18/24 07:11
LDL Cholesterol, Calc 67 mg/dl 04/18/24 07:11
VLDL Cholesterol, Calc 19 mg/dl (0-30) 04/18/24 07:11
HDL Cholesterol 47 mg/dl 04/18/24 07:11
04/15/24
05:58
Wzi-R-Oemlibxmome Pept [id number]
Physical Exam
Constitutional: No acute distress
EENT: Anicteric and Moist mucous membranes
Cardiovascular: Rhythm & rate is regular
Respiratory: Respiratory effort normal and Lungs clear to auscul.
GI: Soft and Normal bowel sounds
Neuro/Psych: AO x 3
Other: Skin (warm, dry) and Cath Site (right radial site intact, no hematoma or bruit noted)
Data Reviewed
-
Date of Service: April 18, 2024
Medical Decision Making: Reviewed Test Results
EKG: Tracing Personally Visualized and interpreted
Echo: Report Reviewed by me
X-Ray/CT/US/MRI/NUC/PET: Other (cath report)
Labs: Labs Reviewed by me
Old Records: Reviewed
[2024-04-18] MEDS: DUONEB INH (11:16)
[2024-04-18 11:31] VITALS: BP 120/83
--- NOTE | 2024-04-18 11:44 | PTCARENOTE ---
Pt ordered to continue telemetry even though protocol does not list reasons. Maame SMALL requesting telemetry to continue d/t pt's new cardiomyopathy.
--- NOTE | 2024-04-18 11:48 | W.PN.HOSP.TC ---
Today's Communication/Plan
-
Monitor vital signs see plan
Continue with IV Lasix
Continue Eliquis
Continue Entresto
Assessment / Plan
Assessment / Plan
Physical Exam
General: no acute distress appears comfortable at this time
HEENT: Moist mucous membranes, PERRLA Thick neck
Respiratory: Clear; No Wheezes, Rales or Rhonchi on nasal cannula oxygen supplementation
Cardiac: S1/S2 and Regular Rhythm; No Murmur
GI: Soft, Non Tender, Non Distended, Normal Bowel Sounds and Other (Obese)
Musculoskeletal: No Clubbing, No Cyanosis and No Edema
Neuro: AO x 3 Marked LE weakness <1 /5 strength. Upper extremity weakness (R > L) able to lift both ext's in air. Loss of hand dexterity b/l noted. Diminished sensation in the LEs
Psych: calm
A/P: Patient is a 53y M with PMH significant for paraplegia / weakness of uncertain etiology who presents to ED complaining of worsening SOB over the past 2 months.
Subjective Dyspnea likely multifactorial (PE and heart failure)
RLL Pulmonary Embolism, could be secondary to inability to ambulate due to MS however need to rule out secondary causes
- CT appreciated.
Now transition to Eliquis; suspect will need lifelong
Should see hematology outpatient. Patient will also need colonoscopy outpatient as she has never gotten one
Severe new onset Heart Failure reduced EF 20-25%
-ECHO appreciated
-exam however appears euvolemic, lungs clear to auscultation, no pitting lower ext's edema
-cardio following, plan for cardiac catheterization 04/17
Continue with IV Lasix
Continue Toprol
-daily weights I/O
-cont home metoprolol
sore throat
rapid strep screen neg
improving
oral thrush; start nystatin
Asthma / COPD
- Suspect obstructive lung disease due to smoking / regular THC use.
- Begin inhaler regimen, PRN albuterol / nebs
- Follow for continued clinical response.
- Would recommend decrease / cessation of THC use.
- Recommend formal outpatient Pulm evaluation, PFTs
Chronic Constipation
- Patient has BM on average once per week.
- Appreciated improvement in dyspnea after moving his bowels.
- Recommend standing bowel regimen to avoid constipation in the future.
Multiple Sclerosis
Cervical Cord Compression
Paraplegia / Upper Extremity Weakness
- Patient with symptoms for > 20 years.
- Originally diagnosed with MS; however, later evaluation as symptoms progressed seemed to indicate more cervical cord compression.
- Had decompression, but unfortunately not much clinical improvement given duration of symptoms prior to this.
- Patient notes that he was off-and-on MS meds over the past 20 years.
- Has never had any new lesions appreciated since his initial diagnosis (despite progressive symptoms). He is currently going to follow-up with physician at [facility]
- No MS meds in the past 2+ years.
- Clinical picture seems to fit mostly with cord compression and now irreversible deficits.
- Follow NIF / FVC, but doubt neurologic etiology of his dyspnea.
- Continue gabapentin for chronic neuropathic pain.
DM-II
- Stable. Continue glipizide at decreased dose.
- Follow glucose and cover with SSI.
Benign Hypertension
- Stable. Continue metoprolol.
Anxiety / Depression
- Some component of anxiety as patient also reports panic attacks, etc over the past 2 months (though all triggered by SOB).
- Would begin / continue Lexapro.
- Continue clonazepam as PRN.
- Adjust regimen as needed.
DVT Prophylaxis: eliquis
Code Status: Full
I spent a total of 51 minutes with the patient or on the floor. More than 50% of this time involved counseling and coordination of care.
Anticipated Discharge: 24 - 48 hours
Subjective/Interval History
-
Date of Service: April 18, 2024
Denies pain
Objective Data
-
Labs:
Laboratory Results
04/18/24
07:11
WBC 13.6 H
Hgb 16.9
Hct 50.1
Plt Count 343
Sodium 140
Potassium 4.7 D
Chloride 97 L
Carbon Dioxide 31 H
BUN 16
Creatinine 1.0
Glucose 117 H
Calcium 9.4
Total Bilirubin 1.0
AST 50
ALT 128 H
Alkaline Phosphatase 106
Vital Signs:
Vital Signs
Temp Pulse Resp BP Pulse Ox
97.9 F 98 18 120/83 99
04/18/24 11:31 04/18/24 11:31 04/18/24 11:31 04/18/24 11:31 04/18/24 11:31
I&O
04/17/24 04/18/24 04/19/24
06:59 06:59 06:59
Intake Total 1668 / 1668 780 / 780
Output Total 850 / 850 400 / 400
Balance 818 / 818 380 / 380
[2024-04-18 11:57] LABS: Glucose - Point of Care 162 mg/dl (70-99)
[2024-04-18] MEDS: NOVOLOG FLEXPEN-LOW RESISTANCE 1 UNITS SC (12:03)
[2024-04-18] MEDS: MYCOSTATIN ORAL SUSPENSION 5 ML PO ×3 (12:04→21:33)
[2024-04-18] MEDS: TOPROL XL 100 MG PO (12:04)
[2024-04-18 15:56] VITALS: BP 127/93
[2024-04-18 16:54] LABS: Glucose - Point of Care 258 mg/dl (70-99)
[2024-04-18] MEDS: NOVOLOG FLEXPEN-LOW RESISTANCE 3 UNITS SC (17:12)
[2024-04-18 19:45] VITALS: BP 121/86
[2024-04-18 21:27] LABS: Glucose - Point of Care 189 mg/dl (70-99)
[2024-04-18] MEDS: SENOKOT 17.2 MG PO (21:33)
[2024-04-18] MEDS: COLACE 100 MG PO (21:33)
[2024-04-18] MEDS: KLONOPIN 0.5 MG PO (21:34)
[2024-04-18 23:58] VITALS: BP 121/83
[2024-04-19 03:55] VITALS: BP 114/75
[2024-04-19 06:00] VITALS: BMI 26.4
[2024-04-19 07:14] VITALS: BP 118/80
[2024-04-19] MEDS: ADVAIR HFA 115/21 MCG INHALER 2 PUFF INH ×2 (07:40→20:34)
[2024-04-19] MEDS: DUONEB 3 ML INH ×4 (07:40→20:34)
[2024-04-19 07:46] LABS: Glucose - Point of Care 160 mg/dl (70-99)
[2024-04-19] MEDS: NEURONTIN 800 MG PO ×4 (08:25→21:17)
[2024-04-19] MEDS: ENTRESTO 49 MG/51 MG 1 TAB PO ×2 (08:25→21:17)
[2024-04-19] MEDS: ELIQUIS 10 MG PO ×2 (08:27→21:17)
[2024-04-19] MEDS: CRESTOR 20 MG PO (08:27)
[2024-04-19] MEDS: LASIX 20 MG IV (08:27)
[2024-04-19] MEDS: COLACE 100 MG PO ×2 (08:27→21:17)
[2024-04-19] MEDS: MYCOSTATIN ORAL SUSPENSION 5 ML PO ×4 (08:27→21:18)
[2024-04-19 08:30] LABS: Hematocrit 54.2 % (39.0-52.0); Hemoglobin 18.2 g/dL (13.0-18.0); Mean Corp Hgb Conc. 33.6 g/dL (33.0-37.0); Mean Corpuscular Volume 83.4 fL (80.0-94.0); Platelet Count 331 10^3/uL (130-400); Red Cell Dist. Width 15.2 % (11.5-14.5)
[2024-04-19] MEDS: MIRALAX 17 GRAMS PO (08:30)
[2024-04-19] MEDS: NOVOLOG FLEXPEN-LOW RESISTANCE 1 UNITS SC ×2 (08:32→17:10)
[2024-04-19] MEDS: LEXAPRO 20 MG PO (08:32)
[2024-04-19] MEDS: GLUCOTROL XL (EXTENDED RELEASE) 5 MG PO ×2 (08:33→17:09)
[2024-04-19] MEDS: TOPROL XL 100 MG PO (08:33)
[2024-04-19] MEDS: GLUCOTROL XL (EXTENDED RELEASE) PO (08:34)
[2024-04-19 08:49] LABS: ALT (SGPT) 121 U/L (0-50); AST (SGOT) 58 U/L (17-59); Albumin 4.4 g/dl (3.5-5.0); Alkaline Phosphatase 115 U/L (38-126); Blood Urea Nitrogen 21 mg/dl (9-20); Calcium 9.4 mg/dl (8.4-10.2); Carbon Dioxide 25 mmol/L (22-30); Chloride 98 mmol/L (98-107); Direct Bilirubin 0.4 mg/dl (0.0-0.4); Estimated Creatinine Clearance 112 ml/min; Glucose 140 mg/dl (70-99); Magnesium 2.2 mg/dl (1.6-2.3); Phosphorus 4.9 mg/dl (2.5-4.5); Potassium 4.2 mmol/L (3.5-5.1); Sodium 140 mmol/L (135-145); Total Bilirubin 1.1 mg/dl (0.2-1.3); Total Protein 7.9 g/dl (6.3-8.2); eGFR > 60.00
[2024-04-19] MEDS: DESENEX/MITRAZOL/ZEASORB 1 APPLIC TOPICAL ×2 (09:38→21:18)
[2024-04-19 11:07] LABS: Glucose - Point of Care 206 mg/dl (70-99)
[2024-04-19 11:10] VITALS: BP 117/79
[2024-04-19] MEDS: NOVOLOG FLEXPEN-LOW RESISTANCE 2 UNITS SC (12:09)
--- NOTE | 2024-04-19 12:28 | W.PN.CD ---
Today's Communication / Plan
-
Appears Jardiance is more cost effective than Farxiga would start Jardiance 10 mg a day
Stop IV Lasix
Would keep on Lasix 20 mg once a day
Defer to primary team regarding hemoglobin, polycythemia.
Patient feels respiratory status is stable from a cardiology perspective would be reasonable to consider discharge.
Patient will need renal profile once a week for 2 weeks postdischarge with initiation of new meds and diuretic.
Impression / Plan
-
53-year-old male with paraplegia, MS, cervical cord compression, hypertension and hyperlipidemia presented for shortness of breath. He was diagnosed with a 6 subsegmental PE. Echo showed new cardiomyopathy with EF 25%. Found on left heart
catheterization to have single vessel CAD (RCA ENVIRONMENTAL COMPLIANCE OFFICER) and elevated biventricular filling pressures.
Heart failure with reduced EF - Acute
Cardiomyopathy - new.
- mixed ischemic and non-ischemic (EF out of proportion to degree of CAD), TSH normal.
- trend LFTs for improvement (likely hepatic congestion), improving.
- consider cMRI as outpatient.
- continue IV Lasix, monitor daily weights.
- continue metoprolol 100 daily and Entresto 49/51mg BID.
-Appears Jardiance is more cost effective than Farxiga for him Jardiance $47 Farxiga $100. Would plan to start Jardiance
CAD - stable w/o angina.
- cath yesterday with RCA ENVIRONMENTAL COMPLIANCE OFFICER, no indication for revascularization of RCA ENVIRONMENTAL COMPLIANCE OFFICER currently (no clear anginal symptoms, disease does not explain degree of CM).
- continue medical therapy.
HLD - LDL 67, goal LDL < 55.
- increased Crestor to 20mg, repeat lipid profile as outpatient.
- monitor LFTs.
- no ASA while on anticoagulation for PE (this is likely chronic disease).
PE - acute.
- may need terminologist therapy/suppression if no clear inciting factor (or if felt due to immobility that is not reversible).
- continue Eliquis.
Data:
TTE 04/15/24
Severely reduced left ventricular systolic function.
Left ventricular ejection fraction is 20-25%.
Moderate mitral regurgitation.
Mild tricuspid regurgitation.
No prior study available for comparison.
Physical Exam
Vital Signs/Labs
Vital Signs
Temp Pulse Resp BP Pulse Ox
97.9 F 94 17 117/79 97
04/19/24 11:10 04/19/24 11:29 04/19/24 11:29 04/19/24 11:10 04/19/24 11:29
04/18/24 04/19/24 04/20/24
06:59 06:59 06:59
Actual Weight 93.157 kg 93.071 kg
04/19/24 06:40
04/19/24 06:40
APTT 79.3 Sec (23.4-35.0) H 04/17/24 08:56
Magnesium 2.2 mg/dl (1.6-2.3) 04/19/24 06:40
Triglycerides 97 mg/dl (10-149) 04/18/24 07:11
LDL Cholesterol, Calc 67 mg/dl 04/18/24 07:11
VLDL Cholesterol, Calc 19 mg/dl (0-30) 04/18/24 07:11
HDL Cholesterol 47 mg/dl 04/18/24 07:11
04/15/24
05:58
Rul-B-Wigludoddvd Pept [id number]
Physical Exam
Constitutional: No acute distress
Cardiovascular: Pedal edema is absent
Respiratory: Lungs clear to auscul.
GI: Soft, Non tender and Normal bowel sounds
Neuro/Psych: Alert and Oriented
Data Reviewed
-
Date of Service: April 19, 2024
Medical Decision Making: Reviewed Test Results
X-Ray/CT/US/MRI/NUC/PET: Report Reviewed by me
Medical Tests (PFT, Pathology etc): Report Reviewed by me
Labs: Labs Reviewed by me
--- NOTE | 2024-04-19 13:21 | W.PN.HOSP.TC ---
Addendum entered and electronically signed by Ortega Epstein MD 04/19/24 13:53:
Correction: no chronic iraheta
Original Note:
Today's Communication/Plan
-
cont ELiquis
start Jardiance
Assessment / Plan
Assessment / Plan
53y M with PMH significant for paraplegia / weakness, MS, cervical cord compression, HFrEF, COPD, DM, HTN, chronic iraheta, chronic constipation, anxiety d/o came with SOB, found RLL pulmonary embolism.
A/P:
#Pulmonary embolism, most likely provoked 2/2 bedbound status
Switched to ELiquis
#Acute on chronic HFrEF exacerbation
#CAD
Echo shwoed severe EF decrease. SGLT to be started
cardiac cath on - single vessel CAD, no need for stent
switched to oral LAsix by Card
#Anxiety d/o
#Chronic paraplegia 2/2 MS and cervical cord compression
#COPD, chronic not in exacerbation
#Essential HTN
#Chronic constipation
cont home meds
#Isolated ALT elevation
check hep profile
#Hemoconcentration
developed after diuresis
follow CBC
#leukocytosis
most likely 2/2 PE
No signs of infection on CT chest
#DM type 2 with neuropathy
Accuchecks, insulin SS, DM diet
#Chronic iraheta
UA
discuss with RN if repalced
DVt ppx on Eliquis
Full code
I have spent at least 57min reviewing chart, test results, direct patient care
Anticipated Discharge: 24 - 48 hours
Subjective/Interval History
-
Date of Service: April 19, 2024
Objective Data
-
Labs:
Laboratory Results
04/19/24
06:40
WBC 15.0 H
Hgb 18.2 H
Hct 54.2 H
Plt Count 331
Sodium 140
Potassium 4.2
Chloride 98
Carbon Dioxide 25
BUN 21 H
Creatinine 0.9
Glucose 140 H
Calcium 9.4
Total Bilirubin 1.1
AST 58
ALT 121 H
Alkaline Phosphatase 115
Vital Signs:
Vital Signs
Temp Pulse Resp BP Pulse Ox
97.9 F 94 17 117/79 97
04/19/24 11:10 04/19/24 11:29 04/19/24 11:29 04/19/24 11:10 04/19/24 11:29
I&O
04/18/24 04/19/24 04/20/24
06:59 06:59 06:59
Intake Total 780 / 780 840 / 840
Output Total 400 / 400 350 / 350
Balance 380 / 380 490 / 490
Review of Systems
-
History Source: Patient
All other systems: Reviewed and negative
Physical Exam
-
General: No Apparent Distress
HEENT: Normocephalic and Atraumatic
Respiratory: Clear to Auscultation
Cardiac: Regular Rhythm
GI: Soft, Nontender and Nondistended
Musculoskeletal: No Clubbing, No Cyanosis and No Edema
Skin: Warm
Neuro: Awake, Alert, Oriented and AO x 3
Psych: Calm
[2024-04-19 13:49] LABS: Urine Albumin Trace (Neg - Trace); Urine Bilirubin Negative (Negative); Urine Character Clear (Clear); Urine Color Yellow; Urine Glucose Negative (Negative); Urine Ketone Negative (Negative); Urine Leukocyte 2+ (Negative); Urine Nitrite Negative (Negative); Urine Occult Blood Negative (Negative); Urine Specific Gravity 1.015 (<1.030); Urine Urobilinogen Negative (Neg - 1+)
[2024-04-19] MEDS: KLONOPIN 0.5 MG PO (14:45)
[2024-04-19 15:29] LABS: Urine Bacteria Moderate (Negative); Urine Red Blood Cell 0-2 /HPF (0-2)
[2024-04-19 15:39] VITALS: BP 95/56
[2024-04-19] MEDS: ROCEPHIN 1000 MG IV (16:00)
[2024-04-19] MEDS: STERILE WATER FOR INJECTION 10 ML IV (16:01)
--- NOTE | 2024-04-19 16:24 | PTCARENOTE ---
Multi podus boots applied as per physical therapy's recommendation written in their note. Pt requested them to be placed. Assisted with physical therapy to place on patient.
[2024-04-19 17:05] LABS: Glucose - Point of Care 167 mg/dl (70-99)
[2024-04-19 19:20] VITALS: BP 108/74
[2024-04-19] MEDS: ANESTHETIC LOZENGE 1 LOZENGE PO (20:27)
[2024-04-19] MEDS: SENOKOT 17.2 MG PO (21:17)
[2024-04-19 21:33] LABS: Glucose - Point of Care 267 mg/dl (70-99)
[2024-04-19 23:25] VITALS: BP 110/79
[2024-04-20] MEDS: KLONOPIN 0.5 MG PO ×3 (01:07→21:54)
[2024-04-20] MEDS: ANESTHETIC LOZENGE 1 LOZENGE PO (01:07)
[2024-04-20 03:18] VITALS: BP 113/80
[2024-04-20 06:00] VITALS: BMI 26.5
[2024-04-20 06:47] LABS: % Basophils 0.8 % (0-2); % Eosinophils 1.4 % (0-6); % Immature Granulocytes 0.5 % (0-0.5); % Lymphocytes 36.3 % (20.5-51.1); % Monocytes 11.8 % (1.7-9.3); % Neutrophils 49.2 % (42.2-75.2); Absolute Basophils 0.1 10^3/uL (0-0.2); Absolute Eosinophils 0.2 10^3/uL (0-0.7); Absolute Immature Granulocytes 0.1 10^3/uL (0-0.05); Absolute Monocytes 1.6 10^3/uL (0.1-0.6); Absolute Neutrophils 6.8 10^3/uL (1.4-6.5); Hematocrit 53.9 % (39.0-52.0); Mean Corp Hgb Conc. 33.4 g/dL (33.0-37.0); Mean Platelet Volume 9.7 fL (7.4-10.4); Nucleated Red Blood Cells % 0 % (-); Platelet Count 289 10^3/uL (130-400); Red Blood Cell Count 6.42 10^6/uL (4.70-6.10); Red Cell Dist. Width 14.3 % (11.5-14.5); White Blood Cell Count 13.9 10^3/uL (4.8-10.8)
[2024-04-20 07:00] VITALS: BP 118/63
[2024-04-20 07:20] LABS: Procalcitonin < 0.05 ng/ml (0.0-0.25)
[2024-04-20 07:21] LABS: ALT (SGPT) 93 U/L (0-50); AST (SGOT) 51 U/L (17-59); Albumin 3.9 g/dl (3.5-5.0); Alkaline Phosphatase 86 U/L (38-126); Blood Urea Nitrogen 33 mg/dl (9-20); Calcium 9.3 mg/dl (8.4-10.2); Carbon Dioxide 25 mmol/L (22-30); Chloride 101 mmol/L (98-107); Direct Bilirubin 0.5 mg/dl (0.0-0.4); Estimated Creatinine Clearance 77 ml/min; Glucose 116 mg/dl (70-99); Magnesium 2.7 mg/dl (1.6-2.3); Phosphorus 4.9 mg/dl (2.5-4.5); Sodium 140 mmol/L (135-145); Total Bilirubin 0.9 mg/dl (0.2-1.3); Total Protein 7.4 g/dl (6.3-8.2); eGFR > 60.00
[2024-04-20 07:34] LABS: Glucose - Point of Care 133 mg/dl (70-99)
[2024-04-20] MEDS: ADVAIR HFA 115/21 MCG INHALER 2 PUFF INH ×2 (08:01→20:23)
[2024-04-20] MEDS: DUONEB 3 ML INH ×4 (08:01→20:23)
[2024-04-20] MEDS: NOVOLOG FLEXPEN-LOW RESISTANCE SC ×3 (08:32→16:54)
[2024-04-20] MEDS: ELIQUIS 10 MG PO ×2 (09:25→21:54)
[2024-04-20] MEDS: MYCOSTATIN ORAL SUSPENSION 5 ML PO ×4 (09:25→21:55)
[2024-04-20] MEDS: GLUCOTROL XL (EXTENDED RELEASE) 5 MG PO ×2 (09:25→16:55)
[2024-04-20] MEDS: NEURONTIN 800 MG PO ×4 (09:25→21:54)
[2024-04-20] MEDS: COLACE 100 MG PO ×2 (09:26→21:55)
[2024-04-20] MEDS: LEXAPRO 20 MG PO (09:26)
[2024-04-20] MEDS: ENTRESTO 49 MG/51 MG 1 TAB PO ×2 (09:26→21:53)
[2024-04-20] MEDS: LASIX 20 MG PO (09:26)
[2024-04-20] MEDS: TOPROL XL 100 MG PO ×2 (09:26→21:54)
[2024-04-20] MEDS: CRESTOR 20 MG PO (09:27)
[2024-04-20] MEDS: DESENEX/MITRAZOL/ZEASORB 1 APPLIC TOPICAL ×2 (09:27→21:55)
[2024-04-20] MEDS: MIRALAX 17 GRAMS PO (09:27)
[2024-04-20] MEDS: JARDIANCE 10 MG PO (09:27)
[2024-04-20 11:00] VITALS: BP 111/73
[2024-04-20 11:59] LABS: Glucose - Point of Care 138 mg/dl (70-99)
--- NOTE | 2024-04-20 12:00 | W.PN.HOSP.TC ---
Addendum entered and electronically signed by Ortega Epstein MD 04/20/24 16:19:
Cardiology to decide on LifeVest
Original Note:
Today's Communication/Plan
-
pending Ucx, cont rocephin
Assessment / Plan
Assessment / Plan
53y M with PMH significant for paraplegia / weakness, MS, cervical cord compression, HFrEF, COPD, DM, HTN, chronic constipation, anxiety d/o came with SOB, found RLL pulmonary embolism. ALso severely reduced EF so patient s/p cardiac cath with
single vessel CAD without stenting, started on GDMT pending outpatient cMRI. Accidental UTI due to leukocytosis. Pending Ucx and then D/C
A/P:
#Pulmonary embolism, most likely provoked 2/2 bedbound status
Switched to ELiquis
Advised age appropriate cancer screening
hematologic causes w/u as outpatient
#UTI
Ucx pending
Rocephin
#Acute on chronic HFrEF exacerbation
#CAD
Echo showed severe EF decrease. SGLT to be started
cardiac cath on - single vessel CAD, no need for stent
switched to oral LAsix by Card
Plan for outpatient cardiac MRI
#Anxiety d/o
#Chronic paraplegia 2/2 MS and cervical cord compression
#COPD, chronic not in exacerbation
#Essential HTN
#Chronic constipation
cont home meds
#Isolated ALT elevation
check hep profile
#Hemoconcentration
developed after diuresis
follow CBC
#leukocytosis
most likely 2/2 PE
No signs of infection on CT chest
#DM type 2 with neuropathy
Accuchecks, insulin SS, DM diet
#Chronic iraheta
UA
discuss with RN if repalced
DVt ppx on Eliquis
Full code
I have spent at least 37min reviewing chart, test results, direct patient care
Anticipated Discharge: 24 - 48 hours
Subjective/Interval History
-
Date of Service: April 20, 2024
Objective Data
-
Labs:
Laboratory Results
04/20/24
06:38
WBC 13.9 H
Hgb 18.0
Hct 53.9 H
Plt Count 289
Sodium 140
Potassium 4.0
Chloride 101
Carbon Dioxide 25
BUN 33 H
Creatinine 1.3
Glucose 116 H
Calcium 9.3
Total Bilirubin 0.9
AST 51
ALT 93 H
Alkaline Phosphatase 86
Vital Signs:
Vital Signs
Temp Pulse Resp BP Pulse Ox
97.8 F 88 16 118/63 96
04/20/24 07:00 04/20/24 11:43 04/20/24 11:43 04/20/24 09:26 04/20/24 07:00
I&O
04/19/24 04/20/24 04/21/24
06:59 06:59 06:59
Intake Total 840 / 840 810 / 810
Output Total 350 / 350
Balance 490 / 490 810 / 810
Review of Systems
-
History Source: Patient
All other systems: Reviewed and negative
Physical Exam
-
General: No Apparent Distress
HEENT: Normocephalic
Respiratory: Clear to Auscultation
Cardiac: Regular Rhythm
GI: Soft, Nontender and Nondistended
Neuro: Awake, Alert, Oriented and AO x 3
Psych: Calm
[2024-04-20 15:00] VITALS: BP 117/81
[2024-04-20] MEDS: ROCEPHIN 1000 MG IV (15:46)
[2024-04-20] MEDS: STERILE WATER FOR INJECTION 10 ML IV (15:46)
--- NOTE | 2024-04-20 16:21 | W.PN.CD ---
Today's Communication / Plan
-
increase metoprolol succinate to 100 bid
cont Entresto 49/51mg BID, jardiance 10mg daily, lasix 20mg daily
can add aldactone tomorrow if labs stable
Impression / Plan
-
53-year-old male with paraplegia, MS, cervical cord compression, hypertension and hyperlipidemia presented for shortness of breath. He was diagnosed with a subsegmental PE. Echo showed new cardiomyopathy with EF 25%. Found on left heart
catheterization to have single vessel CAD (RCA PROFESSOR OF OCEANOGRAPHY) and elevated biventricular filling pressures.
Heart failure with reduced EF - new
Cardiomyopathy - new. EF 20-25%
- mixed ischemic and non-ischemic (EF out of proportion to degree of CAD), TSH normal.
- trend LFTs for improvement (likely hepatic congestion): improving.
- consider cMRI as outpatient.
-echo at 3 months to assess for ICD
- increase metoprolol succinate to 100 bid
-cont Entresto 49/51mg BID, jardiance 10mg daily, lasix 20mg daily
-can add aldactone tomorrow if labs stable
CAD - stable w/o angina.
- cath this admit with RCA PROFESSOR OF OCEANOGRAPHY, no indication for revascularization of RCA PROFESSOR OF OCEANOGRAPHY currently (no clear anginal symptoms, disease does not explain degree of CM).
- continue medical therapy.
Moderate MR: outpatient f/u
HLD - LDL 67, goal LDL < 55.
- increased Crestor to 20mg, repeat lipid profile as outpatient.
- monitor LFTs.
- no ASA while on anticoagulation for PE (this is likely chronic disease).
PE - acute.
- may need termite technician therapy/suppression if no clear inciting factor (or if felt due to immobility that is not reversible).
- continue Eliquis.
Data:
TTE 04/15/24
Severely reduced left ventricular systolic function.
Left ventricular ejection fraction is 20-25%.
Moderate mitral regurgitation.
Mild tricuspid regurgitation.
No prior study available for comparison.
Physical Exam
Vital Signs/Labs
Vital Signs
Temp Pulse Resp BP Pulse Ox
97.8 F 80 16 111/73 96
04/20/24 11:00 04/20/24 16:08 04/20/24 16:08 04/20/24 11:00 04/20/24 07:00
04/19/24 04/20/24 04/21/24
06:59 06:59 06:59
Actual Weight 93.071 kg 93.525 kg
04/20/24 06:38
04/20/24 06:38
APTT 79.3 Sec (23.4-35.0) H 04/17/24 08:56
Magnesium 2.7 mg/dl (1.6-2.3) H 04/20/24 06:38
Triglycerides 97 mg/dl (10-149) 04/18/24 07:11
LDL Cholesterol, Calc 67 mg/dl 04/18/24 07:11
VLDL Cholesterol, Calc 19 mg/dl (0-30) 04/18/24 07:11
HDL Cholesterol 47 mg/dl 04/18/24 07:11
04/15/24
05:58
Zix-L-Qdgwbujukgm Pept [id number]
Physical Exam
Constitutional: No acute distress and Comfortable
EENT: Moist mucous membranes
Cardiovascular: Rhythm & rate is regular, Pedal edema is absent, JVD pressure is normal and Systolic murmur present
Respiratory: Respiratory effort normal and Lungs clear to auscul.
GI: Soft and Distention absent
Neuro/Psych: AO x 3
Data Reviewed
-
Date of Service: April 20, 2024
EKG: Other (Tele: SR 80s)
Labs: Labs Reviewed by me
[2024-04-20 16:55] LABS: Glucose - Point of Care 105 mg/dl (70-99)
[2024-04-20 19:40] VITALS: BP 120/84
[2024-04-20 20:46] LABS: Hepatitis B Core Ab, Total Negative (Negative); Hepatitis B Surface Antibody Negative; Hepatitis C Antibody Negative (Negative)
[2024-04-20 21:34] LABS: Glucose - Point of Care 107 mg/dl (70-99)
[2024-04-20 21:43] LABS: Hepatitis B Surface Antigen Negative (Negative)
[2024-04-20] MEDS: SENOKOT 17.2 MG PO (21:53)
[2024-04-20 23:00] VITALS: BP 123/79
[2024-04-21 03:00] VITALS: BP 101/72
[2024-04-21 06:00] VITALS: BMI 26.4
[2024-04-21] MEDS: ADVAIR HFA 115/21 MCG INHALER 2 PUFF INH ×2 (07:21→20:12)
[2024-04-21] MEDS: DUONEB 3 ML INH ×2 (07:21→11:15)
[2024-04-21 07:40] VITALS: BP 117/79
--- NOTE | 2024-04-21 07:47 | W.PN.CD ---
Addendum entered and electronically signed by Neel Woodard MD 04/21/24 10:21:
Cr. stable. Started aldactone 25 daily. Will trend K on labs tomorrow and discontinue if >5. Will need 1 week labs as outpatient.
Original Note:
Today's Communication / Plan
-
pending Cr will consider adding MRA
Impression / Plan
-
53-year-old male with paraplegia, MS, cervical cord compression, hypertension and hyperlipidemia presented for shortness of breath. He was diagnosed with a subsegmental PE. Echo showed new cardiomyopathy with EF 25%. Found on left heart
catheterization to have single vessel CAD (RCA ALGEBRA TUTOR) and elevated biventricular filling pressures.
Heart failure with reduced EF - new
Cardiomyopathy - new. EF 20-25%
-mixed ischemic and non-ischemic (EF out of proportion to degree of CAD), TSH normal.
-trend LFTs for improvement (likely hepatic congestion): improving.
-consider cMRI as outpatient.
-echo at 3 months to assess for ICD
-cont. lasix 20 PO daily
-GDMT: cont metop 100 BID, Entresto 49/51mg BID, jardiance 10mg daily
-monitor Cr and I/Os --> if stable can add low dose MRA
CAD - stable w/o angina.
- cath this admit with RCA ALGEBRA TUTOR, no indication for revascularization of RCA ALGEBRA TUTOR currently (no clear anginal symptoms, disease does not explain degree of CM).
- continue medical therapy.
Moderate MR: outpatient f/u
HLD - LDL 67, goal LDL < 55.
- increased Crestor to 20mg, repeat lipid profile as outpatient.
- monitor LFTs.
- no ASA while on anticoagulation for PE (this is likely chronic disease).
PE - acute.
- may need roasterman therapy/suppression if no clear inciting factor (or if felt due to immobility that is not reversible).
- continue Eliquis (decrease to 5 BID after 7 day loading at 10 mg BID)
Today feels well, no chest pain or shortness of breath, states he feels back to baseline
Data:
TTE 04/15/24
Severely reduced left ventricular systolic function.
Left ventricular ejection fraction is 20-25%.
Moderate mitral regurgitation.
Mild tricuspid regurgitation.
No prior study available for comparison.
Physical Exam
Vital Signs/Labs
Vital Signs
Temp Pulse Resp BP Pulse Ox
36.4 C 80 16 101/72 97
04/21/24 03:00 04/21/24 07:22 04/21/24 07:22 04/21/24 03:00 04/21/24 03:00
04/20/24 04/21/24 04/22/24
06:59 06:59 06:59
Actual Weight 93.525 kg 93.213 kg
APTT 79.3 Sec (23.4-35.0) H 04/17/24 08:56
Magnesium 2.7 mg/dl (1.6-2.3) H 04/20/24 06:38
Triglycerides 97 mg/dl (10-149) 04/18/24 07:11
LDL Cholesterol, Calc 67 mg/dl 04/18/24 07:11
VLDL Cholesterol, Calc 19 mg/dl (0-30) 04/18/24 07:11
HDL Cholesterol 47 mg/dl 04/18/24 07:11
04/15/24
05:58
[id number] Pept [id number]
Physical Exam
Constitutional: No acute distress and Comfortable
Cardiovascular: Rhythm & rate is regular, Pedal edema is absent, JVD pressure is normal, Systolic murmur absent and Diastolic murmur absent
Respiratory: Respiratory effort normal and Lungs clear to auscul.
Neuro/Psych: Alert, Oriented and AO x 3
Data Reviewed
-
Date of Service: April 21, 2024
Medical Decision Making: Reviewed Test Results and Test Interpretation
Labs: Labs Reviewed by me
[2024-04-21 08:13] LABS: Glucose - Point of Care 97 mg/dl (70-99)
[2024-04-21] MEDS: NOVOLOG FLEXPEN-LOW RESISTANCE SC ×3 (08:35→17:14)
[2024-04-21 08:54] LABS: % Basophils 1.2 % (0-2); % Eosinophils 1.8 % (0-6); % Immature Granulocytes 0.5 % (0-0.5); % Lymphocytes 35.5 % (20.5-51.1); % Monocytes 11.9 % (1.7-9.3); % Neutrophils 49.1 % (42.2-75.2); Absolute Basophils 0.2 10^3/uL (0-0.2); Absolute Eosinophils 0.3 10^3/uL (0-0.7); Absolute Immature Granulocytes 0.1 10^3/uL (0-0.05); Absolute Lymphocytes 5.3 10^3/uL (1.2-3.4); Absolute Monocytes 1.8 10^3/uL (0.1-0.6); Absolute Neutrophils 7.3 10^3/uL (1.4-6.5); Hematocrit 50.8 % (39.0-52.0); Mean Corp Hgb Conc. 33.5 g/dL (33.0-37.0); Mean Corpuscular Hgb 27.5 pg (27.0-31.0); Mean Corpuscular Volume 82.1 fL (80.0-94.0); Mean Platelet Volume 9.7 fL (7.4-10.4); Nucleated Red Blood Cells % 0 % (-); Platelet Count 336 10^3/uL (130-400); Red Blood Cell Count 6.19 10^6/uL (4.70-6.10); Red Cell Dist. Width 14.6 % (11.5-14.5); White Blood Cell Count 14.8 10^3/uL (4.8-10.8)
[2024-04-21 09:09] LABS: ALT (SGPT) 83 U/L (0-50); AST (SGOT) 47 U/L (17-59); Albumin 4.2 g/dl (3.5-5.0); Alkaline Phosphatase 108 U/L (38-126); Blood Urea Nitrogen 22 mg/dl (9-20); Calcium 9.5 mg/dl (8.4-10.2); Carbon Dioxide 26 mmol/L (22-30); Chloride 102 mmol/L (98-107); Direct Bilirubin 0.3 mg/dl (0.0-0.4); Estimated Creatinine Clearance 112 ml/min; Glucose 105 mg/dl (70-99); Magnesium 2.4 mg/dl (1.6-2.3); Phosphorus 4.2 mg/dl (2.5-4.5); Potassium 4.5 mmol/L (3.5-5.1); Sodium 141 mmol/L (135-145); Total Bilirubin 0.9 mg/dl (0.2-1.3); Total Protein 7.6 g/dl (6.3-8.2); eGFR > 60.00
--- NOTE | 2024-04-21 09:23 | PN.CDI ---
CDI
- -
CDI:
Physician Documentation Request
Admit Date: 04/15/24 00:37
Dear Doctor Lucian,
Please review the following and provide your response in the progress notes.
Clinical Indicators:
Pt admitted with CHF/Acute PE
There is potentially conflicting documentation in the record regarding the acuity of CHF.
Documented per cardiac cath , ' newly reduced systolic heart failure..'
Progress notes 04/19 & 04/20 , ' Acute on chronic HFrEF exacerbation...'
Clarify which of the following accurately represents the acuity of the ( HFrEF).
Acute
Acute on Chronic ( no change in documentation)
Other ( please specify)
Use of terms such as suspected, likely, concern for, or probable (associated with a specific diagnosis that is being evaluated, monitored, or treated as if it exists) are acceptable and can be coded in the inpatient setting, when documented at the
time of discharge.
Thank you,
Margaret Pettit RN
CDI Specialist
[facility]
Please use your independent medical judgment in providing your response.
[2024-04-21] MEDS: ELIQUIS 10 MG PO ×2 (09:43→20:02)
[2024-04-21] MEDS: CRESTOR 20 MG PO (09:43)
[2024-04-21] MEDS: MIRALAX 17 GRAMS PO (09:43)
[2024-04-21] MEDS: ENTRESTO 49 MG/51 MG 1 TAB PO ×2 (09:43→22:04)
[2024-04-21] MEDS: LEXAPRO 20 MG PO (09:44)
[2024-04-21] MEDS: GLUCOTROL XL (EXTENDED RELEASE) 5 MG PO ×2 (09:44→17:41)
[2024-04-21] MEDS: JARDIANCE 10 MG PO (09:44)
[2024-04-21] MEDS: COLACE 100 MG PO ×2 (09:44→20:02)
[2024-04-21] MEDS: LASIX 20 MG PO (09:44)
[2024-04-21] MEDS: NEURONTIN 800 MG PO ×4 (09:44→22:04)
[2024-04-21] MEDS: TOPROL XL 100 MG PO (09:44)
[2024-04-21] MEDS: DESENEX/MITRAZOL/ZEASORB 1 APPLIC TOPICAL ×2 (09:45→20:12)
[2024-04-21] MEDS: MYCOSTATIN ORAL SUSPENSION 5 ML PO ×4 (09:45→22:04)
--- NOTE | 2024-04-21 11:15 | W.PN.HOSP.TC ---
Today's Communication/Plan
-
Aldactone added - monitor Cr as per cardiology in AM
Pending final Ucx
Assessment / Plan
Assessment / Plan
53y M with PMH significant for paraplegia / weakness, MS, cervical cord compression, HFrEF, COPD, DM, HTN, chronic constipation, anxiety d/o came with SOB, found RLL pulmonary embolism. ALso severely reduced EF so patient s/p cardiac cath with
single vessel CAD without stenting, started on GDMT pending outpatient cMRI. Accidental UTI due to leukocytosis. Pending Ucx and then D/C
A/P:
#Pulmonary embolism, most likely provoked 2/2 bedbound status
Switched to Eliquis
Advised age appropriate cancer screening
hematologic causes w/u as outpatient
#UTI
Ucx Enterococcus, pending sensitivity
Rocephin
#Acute on chronic HFrEF exacerbation
#CAD
Echo showed severe EF decrease. SGLT started
cardiac cath on - single vessel CAD, no need for stent
switched to oral LAsix by Card
Plan for outpatient cardiac MRI
Titrated Lasix, added aldactone
#Anxiety d/o
#Chronic paraplegia 2/2 MS and cervical cord compression
#COPD, chronic not in exacerbation
#Essential HTN
#Chronic constipation
cont home meds
#Isolated ALT elevation
check hep profile
#Hemoconcentration
developed after diuresis
follow CBC
#leukocytosis
most likely 2/2 PE
No signs of infection on CT chest
#DM type 2 with neuropathy
Accuchecks, insulin SS, DM diet
#Chronic iraheta
UA
discuss with RN if repalced
DVt ppx on Eliquis
Full code
I have spent at least 37min reviewing chart, test results, direct patient care
Anticipated Discharge: Within 24 hours
Subjective/Interval History
-
Date of Service: April 21, 2024
Objective Data
-
Labs:
Laboratory Results
04/21/24
08:12
WBC 14.8 H
Hgb 17.0
Hct 50.8
Plt Count 336
Sodium 141
Potassium 4.5
Chloride 102
Carbon Dioxide 26
BUN 22 H
Creatinine 0.9
Glucose 105 H
Calcium 9.5
Total Bilirubin 0.9
AST 47
ALT 83 H
Alkaline Phosphatase 108
Vital Signs:
Vital Signs
Temp Pulse Resp BP Pulse Ox
97.6 F 78 18 117/79 97
04/21/24 07:40 04/21/24 09:43 04/21/24 07:40 04/21/24 09:43 04/21/24 07:40
I&O
04/20/24 04/21/24 04/22/24
06:59 06:59 06:59
Intake Total 810 / 810 480 / 480
Balance 810 / 810 480 / 480
Review of Systems
-
History Source: Patient
All other systems: Reviewed and negative
Physical Exam
-
General: No Apparent Distress
HEENT: Normocephalic
Respiratory: Clear to Auscultation
GI: Soft, Nontender and Nondistended
Genito-urinary: No Costovertebral Tender
Musculoskeletal: No Clubbing, No Cyanosis and No Edema
Skin: Warm
Neuro: Awake, Alert, Oriented and AO x 3
Psych: Calm
[2024-04-21 11:30] VITALS: BP 119/83
[2024-04-21 12:15] LABS: Glucose - Point of Care 133 mg/dl (70-99)
[2024-04-21] MEDS: KLONOPIN 0.5 MG PO ×2 (12:21→22:08)
[2024-04-21] MEDS: ALDACTONE 25 MG PO (12:24)
--- NOTE | 2024-04-21 15:18 | CM ---
Patient seen bedside.
Patient seen by PT/OT recommendation is for home care.
Referral to [facility] via TT.
Patient also requested podiatry consultation, TT to MD.
Plan: home with girlfriend (private caregiver) and VN.
[2024-04-21 15:55] VITALS: BP 112/74
--- NOTE | 2024-04-21 16:01 | VNURNOTE ---
Home health liaison went up to speak with patient about [facility] services and patient was sleeping. [facility] brochure left on bedside table with contact number for patient. Referral for [facility] placed in [facility]
[2024-04-21 16:52] LABS: Glucose - Point of Care 104 mg/dl (70-99)
[2024-04-21] MEDS: STERILE WATER FOR INJECTION 10 ML IV (17:39)
[2024-04-21] MEDS: ROCEPHIN 1000 MG IV (17:40)
[2024-04-21 19:30] VITALS: BP 100/69
[2024-04-21] MEDS: SENOKOT 17.2 MG PO (20:04)
[2024-04-21] MEDS: TOPROL XL PO (20:09)
[2024-04-21 21:59] LABS: Glucose - Point of Care 131 mg/dl (70-99)
[2024-04-21 23:30] VITALS: BP 97/65
[2024-04-22 03:30] VITALS: BP 110/73
[2024-04-22 05:01] VITALS: BMI 27.2
[2024-04-22 07:33] LABS: Glucose - Point of Care 98 mg/dl (70-99)
[2024-04-22 07:50] VITALS: BP 146/91
[2024-04-22 07:56] LABS: % Basophils 0.9 % (0-2); % Eosinophils 1.8 % (0-6); % Immature Granulocytes 0.5 % (0-0.5); % Lymphocytes 35.2 % (20.5-51.1); % Monocytes 11.2 % (1.7-9.3); % Neutrophils 50.4 % (42.2-75.2); Absolute Basophils 0.1 10^3/uL (0-0.2); Absolute Eosinophils 0.3 10^3/uL (0-0.7); Absolute Immature Granulocytes 0.1 10^3/uL (0-0.05); Absolute Lymphocytes 5.2 10^3/uL (1.2-3.4); Absolute Monocytes 1.7 10^3/uL (0.1-0.6); Absolute Neutrophils 7.4 10^3/uL (1.4-6.5); Hematocrit 50.4 % (39.0-52.0); Hemoglobin 16.9 g/dL (13.0-18.0); Mean Corp Hgb Conc. 33.5 g/dL (33.0-37.0); Mean Corpuscular Hgb 27.7 pg (27.0-31.0); Mean Corpuscular Volume 82.5 fL (80.0-94.0); Nucleated Red Blood Cells % 0 % (-); Platelet Count 301 10^3/uL (130-400); Red Blood Cell Count 6.11 10^6/uL (4.70-6.10); Red Cell Dist. Width 14.4 % (11.5-14.5); White Blood Cell Count 14.8 10^3/uL (4.8-10.8)
[2024-04-22 08:14] LABS: ALT (SGPT) 71 U/L (0-50); AST (SGOT) 36 U/L (17-59); Albumin 3.9 g/dl (3.5-5.0); Alkaline Phosphatase 93 U/L (38-126); Blood Urea Nitrogen 24 mg/dl (9-20); Calcium 9.3 mg/dl (8.4-10.2); Carbon Dioxide 25 mmol/L (22-30); Chloride 103 mmol/L (98-107); Direct Bilirubin 0.3 mg/dl (0.0-0.4); Estimated Creatinine Clearance 112 ml/min; Glucose 96 mg/dl (70-99); Magnesium 2.4 mg/dl (1.6-2.3); Phosphorus 4.3 mg/dl (2.5-4.5); Potassium 4.4 mmol/L (3.5-5.1); Sodium 138 mmol/L (135-145); Total Bilirubin 0.5 mg/dl (0.2-1.3); Total Protein 7.1 g/dl (6.3-8.2); eGFR > 60.00
--- NOTE | 2024-04-22 08:19 | W.PN.CD ---
Today's Communication / Plan
-
stable on 4 pillar GDMT; ok for discharge from cardiology perspective
Impression / Plan
-
53-year-old male with paraplegia, MS, cervical cord compression, hypertension and hyperlipidemia presented for shortness of breath. He was diagnosed with a subsegmental PE. Echo showed new cardiomyopathy with EF 25%. Found on left heart
catheterization to have single vessel CAD (RCA MUSKRAT TRAPPER) and elevated biventricular filling pressures.
Heart failure with reduced EF - new
Cardiomyopathy - new. EF 20-25%
-mixed ischemic and non-ischemic (EF out of proportion to degree of CAD), TSH normal.
-trend LFTs for improvement (likely hepatic congestion): improving.
-consider cMRI as outpatient.
-echo at 3 months to assess for ICD
-cont. lasix 20 PO daily
-GDMT: cont metop 100 BID, Entresto 49/51mg BID, jardiance 10mg daily, aldactone 25 mg
-K and Cr stable on above regimen
CAD - stable w/o angina.
- cath this admit with RCA MUSKRAT TRAPPER, no indication for revascularization of RCA MUSKRAT TRAPPER currently (no clear anginal symptoms, disease does not explain degree of CM).
- continue medical therapy.
Moderate MR: outpatient f/u
HLD - LDL 67, goal LDL < 55.
- increased Crestor to 20mg, repeat lipid profile as outpatient.
- monitor LFTs.
- no ASA while on anticoagulation for PE (this is likely chronic disease).
PE - acute.
- may need power lineman therapy/suppression if no clear inciting factor (or if felt due to immobility that is not reversible).
- continue Eliquis (decrease to 5 BID after 7 day loading at 10 mg BID)
Today feels well, no chest pain or shortness of breath, states he feels back to baseline
Data:
TTE 04/15/24
Severely reduced left ventricular systolic function.
Left ventricular ejection fraction is 20-25%.
Moderate mitral regurgitation.
Mild tricuspid regurgitation.
No prior study available for comparison.
Physical Exam
Vital Signs/Labs
Vital Signs
Temp Pulse Resp BP Pulse Ox
36.8 C 79 18 110/73 95
04/22/24 03:30 04/22/24 03:30 04/22/24 03:30 04/22/24 03:30 04/22/24 03:30
04/21/24 04/22/24 04/23/24
06:59 06:59 06:59
Actual Weight 93.213 kg 96.162 kg
04/22/24 07:10
04/22/24 07:10
APTT 79.3 Sec (23.4-35.0) H 04/17/24 08:56
Magnesium 2.4 mg/dl (1.6-2.3) H 04/22/24 07:10
Triglycerides 97 mg/dl (10-149) 04/18/24 07:11
LDL Cholesterol, Calc 67 mg/dl 04/18/24 07:11
VLDL Cholesterol, Calc 19 mg/dl (0-30) 04/18/24 07:11
HDL Cholesterol 47 mg/dl 04/18/24 07:11
04/15/24
05:58
Mmz-F-Mklpfxiqyiw Pept [id number]
Physical Exam
Constitutional: No acute distress and Comfortable
Cardiovascular: Rhythm & rate is regular, Pedal edema is absent, JVD pressure is normal, Systolic murmur absent and Diastolic murmur absent
Respiratory: Respiratory effort normal, Lungs clear to auscul. and Wheeze Absent
Neuro/Psych: Alert, Oriented and AO x 3
Data Reviewed
-
Date of Service: April 22, 2024
Medical Decision Making: Reviewed Test Results and Test Interpretation
Labs: Labs Reviewed by me
[2024-04-22] MEDS: ADVAIR HFA 115/21 MCG INHALER 2 PUFF INH (08:20)
[2024-04-22] MEDS: NEURONTIN 800 MG PO ×3 (09:00→16:57)
[2024-04-22] MEDS: NOVOLOG FLEXPEN-LOW RESISTANCE SC ×3 (09:09→16:56)
[2024-04-22] MEDS: MIRALAX 17 GRAMS PO (09:10)
[2024-04-22] MEDS: CRESTOR 20 MG PO (09:10)
[2024-04-22] MEDS: MYCOSTATIN ORAL SUSPENSION 5 ML PO ×2 (09:10→13:14)
[2024-04-22] MEDS: LASIX 20 MG PO (09:11)
[2024-04-22] MEDS: ELIQUIS 10 MG PO (09:11)
[2024-04-22] MEDS: GLUCOTROL XL (EXTENDED RELEASE) 5 MG PO ×2 (09:12→16:57)
[2024-04-22] MEDS: COLACE 100 MG PO (09:12)
[2024-04-22] MEDS: ALDACTONE 25 MG PO (09:12)
[2024-04-22] MEDS: ENTRESTO 49 MG/51 MG 1 TAB PO (09:12)
[2024-04-22] MEDS: DESENEX/MITRAZOL/ZEASORB 1 APPLIC TOPICAL (09:13)
[2024-04-22] MEDS: TOPROL XL 100 MG PO (09:14)
[2024-04-22] MEDS: LEXAPRO 20 MG PO (09:14)
[2024-04-22] MEDS: JARDIANCE 10 MG PO (09:15)
[2024-04-22 11:45] VITALS: BP 120/79
--- NOTE | 2024-04-22 12:04 | W.PN.HOSP.TC ---
Today's Communication/Plan
-
CT abd
Assessment / Plan
Assessment / Plan
53y M with PMH significant for paraplegia / weakness, MS, cervical cord compression, HFrEF, COPD, DM, HTN, chronic constipation, anxiety d/o came with SOB, found RLL pulmonary embolism. ALso severely reduced EF so patient s/p cardiac cath with
single vessel CAD without stenting, started on GDMT pending outpatient cMRI. Accidental UTI due to leukocytosis. SInce Enterococcus - need to r/o complicated infection
A/P:
#Pulmonary embolism, most likely provoked 2/2 bedbound status
Switched to Eliquis
Advised age appropriate cancer screening
hematologic causes w/u as outpatient
#UTI
Ucx Enterococcus faecalis sensitive to penicillin - start Amoxacillin
Eval for complicated infection with presence of enterococccus - CT abd/pelvis
#Acute on chronic HFrEF exacerbation
#CAD
Echo showed severe EF decrease. SGLT started
cardiac cath on - single vessel CAD, no need for stent
switched to oral LAsix by Card
Plan for outpatient cardiac MRI
Titrated Lasix, added aldactone
#Anxiety d/o
#Chronic paraplegia 2/2 MS and cervical cord compression
#COPD, chronic not in exacerbation
#Essential HTN
#Chronic constipation
cont home meds
#Isolated ALT elevation
check hep profile
#Hemoconcentration
developed after diuresis
follow CBC
#leukocytosis
most likely 2/2 PE
No signs of infection on CT chest
#DM type 2 with neuropathy
Accuchecks, insulin SS, DM diet
#Chronic iraheta
UA
discuss with RN if repalced
DVt ppx on Eliquis
Full code
I have spent at least 37min reviewing chart, test results, direct patient care
Anticipated Discharge: Within 24 hours
Subjective/Interval History
-
Date of Service: April 22, 2024
Objective Data
-
Labs:
Laboratory Results
04/22/24
07:10
WBC 14.8 H
Hgb 16.9
Hct 50.4
Plt Count 301
Sodium 138
Potassium 4.4
Chloride 103
Carbon Dioxide 25
BUN 24 H
Creatinine 0.9
Glucose 96
Calcium 9.3
Total Bilirubin 0.5
AST 36
ALT 71 H
Alkaline Phosphatase 93
Vital Signs:
Vital Signs
Temp Pulse Resp BP Pulse Ox
97.7 F 80 18 146/91 95
04/22/24 07:50 04/22/24 07:50 04/22/24 07:50 04/22/24 07:50 04/22/24 07:50
I&O
04/21/24 04/22/24 04/23/24
06:59 06:59 06:59
Intake Total 480 / 480 1320 / 1320
Balance 480 / 480 1320 / 1320
[2024-04-22 12:08] LABS: Glucose - Point of Care 111 mg/dl (70-99)
[2024-04-22] MEDS: AMOXIL 500 MG PO (13:14)
--- NOTE | 2024-04-22 13:17 | VNURNOTE ---
Home Health Liaison met with patient at bedside to discuss [facility] nurse/therapy, visits, schedule and homebound status. Patient is agreeable and understands that visits at home will be 2-3 x per week to assess and teach medical management. [facility]
brochure provided with contact information. Patient is aware that [facility] will contact them for start of care in 1-2 days after discharge from .
[facility] referral updated in [facility].
--- NOTE | 2024-04-22 14:38 | W.DCSUMMARY ---
Addendum entered and electronically signed by Ortega Epstein MD 04/22/24 14:41:
Acute new onset HFrEF exacerbation
Cardiology is planning to reassess for AICD in 3 month
Original Note:
Discharge Summary
Discharge Data
Date of Admission: 04/15/24
Date of Discharge: 04/22/24
-
Pending Results: No
Hospital Course
53y M with PMH significant for paraplegia / weakness, MS, cervical cord compression, HFrEF, COPD, DM, HTN, chronic constipation, anxiety d/o came with SOB, found RLL pulmonary embolism. ALso severely reduced EF so patient s/p cardiac cath with
single vessel CAD without stenting, started on GDMT pending outpatient cMRI. Accidental UTI due to leukocytosis. Ucx grew Enterococcus faecalis sensitive to Amoxicillin. CT and without complicated UTI. Medicamlly stable for D/C. Eliquis starter pack
prescribed with instructions to cont Eliquis 10mg unitl AM 04/24/24 and start Eliquis 5mg BID at PM on 04/24/24
I have spent at least 38min discharging the patient
A/P:
#Pulmonary embolism, most likely provoked 2/2 bedbound status
#UTI
#Acute on chronic HFrEF exacerbation
#CAD
#Anxiety d/o
#Chronic paraplegia 2/2 MS and cervical cord compression
#COPD, chronic not in exacerbation
#Essential HTN
#Chronic constipation
#Isolated ALT elevation
#Hemoconcentration
#leukocytosis
#DM type 2 with neuropathy
Discharge Plan
-
Patient Disposition: Home with Home Care
Discharge Diagnosis/Procedures: cardiac catheterization
Diet: Diabetic, Carb Controlled
Activity: As tolerated
Driving Restrictions: As prior to admission
Instructions: *CBC Heart Failure Instructions
Stand Alone Forms: DC Instructions- Cath/EP Lab
Referrals:
Brigida Zambrano NP [Specified Professional Personl] - 05/11/24 1:20 pm (Cardiology followup appointment)
UNKNOWN - PT DOES,NOT KNOW [Family Provider] -
Prescriptions:
New
fluticasone propion-salmeterol 115-21 mcg/actuation Hfa Aerosol Inhaler
2 puff inhalation R BID Qty: 12 0RF
amoxicillin 500 mg Capsule
500 mg PO Q8H Qty: 21 0RF
spironolactone 25 mg Tablet
25 mg PO DAILY Qty: 30 0RF
docusate sodium 100 mg Capsule
100 mg PO BID Qty: 60 0RF
Entresto 49-51 mg Tablet
1 tab PO BID Qty: 30 0RF
Jardiance 10 mg tablet
10 mg PO DAILY Qty: 30 0RF
Eliquis DVT-PE Treat 30D Start 5 mg (74 tabs) tablets,dose pack
5 mg PO ONCE Qty: 74 0RF
Rx Instructions:
Take 10mg BID until AM 04/24/24, start 5mg BID at PM on 04/24/24
metoprolol succinate 100 mg Tablet Extended Release 24 Hr
100 mg PO BID Qty: 60 0RF
glipizide 5 mg Tablet Extended Release 24hr
5 mg PO BID@0800,1700 Qty: 30 0RF
furosemide 20 mg Tablet
20 mg PO DAILY Qty: 30 0RF
rosuvastatin 20 mg Tablet
20 mg PO DAILY Qty: 30 0RF
Continued
clonazepam 1 mg Tablet
1 mg PO BID
Patient Comments:
04/14/2024: last filled 04/10/24, 60 tabs for 30 days from [facility]
gabapentin 800 mg Tablet
800 mg PO QID
escitalopram oxalate 20 mg Tablet
20 mg PO ONCE
ergocalciferol (vitamin D2) 1,250 mcg (50,000 unit) capsule
1,250 mcg PO WE
nystatin [Nyamyc] 100,000 unit/gram powder
1 applic TOPICAL QID
Patient Comments:
apply to groin
Discontinued
metoprolol succinate 50 mg Tablet Extended Release 24 Hr
50 mg PO DAILY
glipizide 10 mg Tablet Extended Release 24hr
10 mg PO BID
rosuvastatin 10 mg Tablet
10 mg PO DAILY
aspirin 81 mg Tablet,Delayed Release (Dr/Ec)
81 mg PO DAILY
clobetasol 0.05 % solution
1 applic TOPICAL BIDPRN PRN (Reason: psoriasis breakout)
Patient Comments:
apply to scalp
Discharge Orders:
Discharge Patient (As Directed); Ordered 04/22/24
Ordered By: Ortega Epstein
Discharge Date and Time
Print Language: PERSIAN
--- NOTE | 2024-04-22 14:57 | CM ---
Patient for d/c home today.
IMM completed.
Patient transport forms completed.
Plan: home via ambulance to [address] [id number]- [address] to enter, 1 story trailer.
Home with VN
[2024-04-22 15:00] VITALS: BP 120/80
[2024-04-22] MEDS: PREVNAR 20 0.5 ML IM (15:29)
[2024-04-22 16:54] LABS: Glucose - Point of Care 121 mg/dl (70-99)
[2024-04-22] MEDS: MYCOSTATIN ORAL SUSPENSION PO (17:17)
== END 2024-04-22 19:02 | disposition home health service (06) | DRG 286 ==
LOC: 4 WEST ACU 00:37
PROVIDERS: Emergency Medicine; Internal Medicine; Student in an Organized Health Care Education/Training Program; ADMITTING PHYSICIAN Hospitalist; ATTENDING PHYSICIAN Internal Medicine; CONSULT PHYSICIAN Internal Medicine Cardiovascular Disease; EMERGENCY PHYSICIAN Student in an Organized Health Care Education/Training Program
PROC: 4A023N8 Measurement of Cardiac Sampling and Pressure, Bilateral, Percutaneous Approach (ICD-10-PCS; 2024-04-17)
PROC: B2111ZZ Fluoroscopy of Multiple Coronary Arteries using Low Osmolar Contrast (ICD-10-PCS; 2024-04-17)
PROC: B2161ZZ Fluoroscopy of Right and Left Heart using Low Osmolar Contrast (ICD-10-PCS; 2024-04-17)
DX: I11.0 Hypertensive heart disease with heart failure (principal); I26.99 Other pulmonary embolism without acute cor pulmonale; I50.23 Acute on chronic systolic (congestive) heart failure; G82.20 Paraplegia, unspecified; N39.0 Urinary tract infection, site not specified; F41.0 Panic disorder [episodic paroxysmal anxiety]; Z74.01 Bed confinement status; J44.89 Other specified chronic obstructive pulmonary disease; I25.10 Atherosclerotic heart disease of native coronary artery without angina pectoris; E11.40 Type 2 diabetes mellitus with diabetic neuropathy, unspecified; G35 Multiple sclerosis; I42.8 Other cardiomyopathies; Z11.52 Encounter for screening for COVID-19
CPT/HCPCS: 71275; 74176; 80048; 80053; 80061; 81003; 81015; 82248; 82962; 83036; 83735; 83880; 84100; 84145; 84443; 84484; 85025; 85027; 85379; 85730; 86704; 86706; 86803; 87070; 87077; 87086; 87186; 87340; 87811; 87880; 90677; 93005; 93306; 93460; 94640; 97163; 97167; 97530; 97535; C1894; G0009; Q9967